=== PATIENT | female | born 1985 | race Caucasian/White ===

== ENCOUNTER → 2017-08-20 | Outpatient (CLI) | payer BC ==
[2017-08-20 10:40] LABS: HCT 42.3 % (34.0-46.0); HGB 13.8 gm/dL (11.4-16.0); MCHC 32.6 g/dL (31.0-37.0); Mean Platelet Volume 7.6; Platelet Count 264 k/uL (150-450); RDW 13.7 % (11.5-15.5); WBC 7.1 k/uL (3.8-10.6)
[2017-08-20 10:51] LABS: ALT 71 U/L (9-52); AST 35 U/L (14-36); Albumin 4.4 g/dL (3.5-5.0); Alkaline Phosphatase 51 U/L (38-126); Anion Gap 12 mmol/L; Blood Urea Nitrogen 13 mg/dL (7-17); Calcium 9.8 mg/dL (8.4-10.2); Carbon Dioxide 27 mmol/L (22-30); Chloride 104 mmol/L (98-107); Cholesterol 183 mg/dL (<200); Glucose 99 mg/dL (74-99); HDL Cholesterol 47 mg/dL (40-60); LDL Cholesterol,Calculated 117 mg/dL (0-99); Potassium 4.3 mmol/L (3.5-5.1); Sodium 143 mmol/L (137-145); Total Bilirubin 0.3 mg/dL (0.2-1.3); Total Protein 7.3 g/dL (6.3-8.2); Triglycerides 95 mg/dL (<150)
[2017-08-20 18:32] LABS: Hemoglobin A1C 5.5 % (4.0-6.0)
== END | disposition home or self-care (01) ==
LOC: LABWHC1 10:09
PROVIDERS: ATTEND Obstetrics & Gynecology Obstetrics
DX: Z00.00 Encounter for general adult medical examination without abnormal findings (principal); R10.9 Unspecified abdominal pain
CPT/HCPCS: 36415; 80053; 80061; 83036; 84439; 84443; 85027

== ENCOUNTER → 2017-12-27 | Outpatient (CLI) | payer BC | END | disposition home or self-care (01) | LOC: LABWHC1 14:21 | PROVIDERS: ATTEND Obstetrics & Gynecology Obstetrics | DX: N92.5 Other specified irregular menstruation (principal) | CPT/HCPCS: 36415; 84144; 84702 ==

== ENCOUNTER → 2017-12-29 | Outpatient (CLI) | payer BC | END | disposition home or self-care (01) | LOC: LABWHC1 13:35 | PROVIDERS: ATTEND Obstetrics & Gynecology Obstetrics | DX: N92.5 Other specified irregular menstruation (principal) | CPT/HCPCS: 36415; 84702 ==

== ENCOUNTER → 2018-05-04 | Outpatient (CLI) | payer BC, OTHER | END | disposition home or self-care (01) | LOC: LABWHC1 16:22 | PROVIDERS: ATTEND Family Medicine | DX: B83.9 Helminthiasis, unspecified (principal) | CPT/HCPCS: 87328; 87329 ==

== ENCOUNTER 2018-08-15 06:00 | Inpatient (IN) | payer BC, OTHER ==
[2018-08-15] MEDS ORDERED: METHYLERGONOVINE 0.2 MG/ML 1 ML AMP IM PRN (17:08)
[2018-08-15] MEDS ORDERED: CARBOPROST TROMETHAMINE 250 MCG/ML 1 ML AMP IM PRN (17:08)
[2018-08-15] MEDS ORDERED: LIDOCAINE 0.5% (PF) 5 MG/ML (50 ML SDV) SQ PRN (17:08)
[2018-08-15] MEDS ORDERED: TERBUTALINE 1 MG/ML VIAL SQ PRN (17:08)
[2018-08-15] MEDS ORDERED: OXYTOCIN 10 UNIT/ML 1 ML VIAL IM PRN (17:08)
[2018-08-15] MEDS ORDERED: DINOPROSTONE 10 MG INSERT.ER VAGINAL ONE (17:40)
[2018-08-15 18:00] LABS: Glucose,Whole Blood 74 mg/dL (75-99)
[2018-08-15] MEDS ORDERED: AMPICILLIN 2,000 MG in SODIUM CHLORIDE 0.9% 100 ML IVPB STA (18:07)
[2018-08-15] MEDS ORDERED: BUTORPHANOL 1 MG/ML 1 ML VIAL IV PRN (18:21)
--- NOTE | 2018-08-15 18:21 | P.HPOB ---
History of Present Illness H&P Date: 08/15/18 Chief Complaint: IUP at 37 and 5, uncontrolled gestational diabetes, LGA, AMA This is a very pleasant 33-year-old 4 para 0030 at 37-6/7 weeks that presented to labor and delivery for induction of labor secondary to uncontrolled gestational diabetes, LGA, AMA. Patient has been poorly controlled throughout her despite multiple discussions regarding diet and necessary blood sugars. Ultrasound revealing a 77 th %ile infant. testing has been normal. Patient has been receiving routine care with myself since the first trimester. Her care is significant for a diagnosis of gestational diabetes has been poorly controlled, hypothyroidism, advanced maternal age and asthma but been well controlled. blood work blood type of A+, rubella immune and hepatitis B surface engine negative, HIV negative, RPR nonreactive, group beta strep negative. Review of Systems Constitutional: Denies chills, Denies fatigue, Denies fever Ears, nose, mouth and throat: Denies headache Cardiovascular: Reports leg edema Respiratory: Denies cough, Denies dyspnea Gastrointestinal: Denies constipation, Denies diarrhea, Denies nausea, Denies vomiting Genitourinary: Reports Past Medical History Past Medical History: Asthma, Thyroid Disorder History of Any Multi-Drug Resistant Organisms: None Reported Additional Past Surgical History / Comment(s): Knee surgery to repair torn miniscus Past Anesthesia/Blood Transfusion Reactions: No Reported Reaction Past Psychological History: No Psychological Hx Reported Smoking Status: Former smoker Past Alcohol Use History: None Reported Past Drug Use History: None Reported Medications and Allergies Home Medications Medication Instructions Recorded Confirmed Type Levothyroxine Sodium [Synthroid] 75 mcg PO DAILY 07/03/18 07/03/18 History Pnv No.95/Ferrous Fum/Folic AC 1 each PO DAILY 07/03/18 07/03/18 History [ Multivitamin Tablet] Allergies Allergy/AdvReac Type Severity Reaction Status Date / Time lavender (Lavandula Allergy Rash/Hives Verified 08/15/18 17:42 angustifolia) shellfish derived [Shellfish] Allergy Diarrhea Verified 08/15/18 17:42 mustard AdvReac Anaphylaxis Verified 08/15/18 17:42 Exam Osteopathic Statement: *. No significant issues noted on an osteopathic structural exam other than those noted in the History and Physical/Consult. Targeted physical exam is performed on this date in general this is a well- nourished well-developed obese female in no acute distress. She notes nonlabored breathing heart is a regular rate and rhythm her abdomen is obese and gravid, on cervical exam /-3 soft anterior, Cervidil was placed without difficulty. heart tones are reassuring for gestational age and she is not yue. Assessment and Plan (1) Term Current Visit: Yes Status: Acute Code(s): Z34.80 - ENCOUNTER FOR SUPRVSN OF NORMAL , UNSP TRIMESTER SNOMED Code(s): 99821564 (2) GDM (gestational diabetes mellitus) Current Visit: Yes Status: Acute Code(s): O24.419 - GESTATIONAL DIABETES MELLITUS IN , UNSP CONTROL SNOMED Code(s): 13791964 (3) AMA (advanced maternal age) primigravida 35+ Current Visit: Yes Status: Acute Code(s): O09.519 - SUPERVISION OF ELDERLY PRIMIGRAVIDA, UNSPECIFIED TRIMESTER SNOMED Code(s): 20450935 (4) LGA (large for gestational age) fetus Current Visit: Yes Status: Acute Code(s): ZKV9649 - SNOMED Code(s): 864563597 (5) Poorly controlled diabetes mellitus Current Visit: Yes Status: Acute Code(s): E11.65 - TYPE 2 DIABETES MELLITUS WITH HYPERGLYCEMIA SNOMED Code(s): 039807144 Plan: Patient is admitted for Cervidil induction of labor, continuous monitoring along with monitoring of contractions with toco will be observed. Patient has a Hep-Lock in place. Will plan removal of Cervidil this morning with addition of Pitocin for augmentation of labor, amniotomy when appropriate. Patient's plan is reviewed and discussed with patient. Donna at bedside. Suspect this is a large for gestational age baby and discussed this patient will monitor progress through labor closely.
[2018-08-15 18:51] LABS: Basophils # (A) 0.1 k/uL (0-0.2); Basophils % (A) 1 %; Eosinophils # (A) 0.3 k/uL (0-0.7); Eosinophils % (A) 3 %; HCT 44.4 % (34.0-46.0); Lymphocytes # (A) 2.3 k/uL (1.0-4.8); Lymphocytes % (A) 22 %; MCH 26.8 pg (25.0-35.0); MCHC 31.7 g/dL (31.0-37.0); MCV 84.7 fL (80.0-100.0); Monocytes # (A) 0.5 k/uL (0-1.0); Monocytes % (A) 4 %; Neutrophils # (A) 6.9 k/uL (1.3-7.7); Neutrophils % (A) 68 %; Platelet Count 182 k/uL (150-450); RBC 5.24 m/uL (3.80-5.40); RDW 14.1 % (11.5-15.5); WBC 10.2 k/uL (3.8-10.6)
[2018-08-16] MEDS: LACTATED RINGERS 1,000 ML IV SCH ×5 (05:42→19:56)
[2018-08-16] MEDS: AMPICILLIN 1,000 MG in SODIUM CHLORIDE 0.9% 50 ML IVPB SCH ×3 (05:49→15:26)
[2018-08-16] MEDS ORDERED: OXYTOCIN 30 UNITS/500 ML NS 30 UNIT in SALINE 1 500ML.BAG IV SCH (06:00)
[2018-08-16 07:39] LABS: Glucose,Whole Blood 90 mg/dL (75-99)
[2018-08-16] MEDS ORDERED: ROPIVACAINE 100 MG, fentaNYL (PF) 200 MCG in SODIUM CHLORIDE 0.9% 76 ML EPIDURAL ONE (13:26)
[2018-08-16] MEDS ORDERED: CITRIC ACID-SODIUM CITRATE 15 ML CUP PO ONE (16:04)
[2018-08-16] MEDS ORDERED: ceFAZolin IN SWFI 2 GM/20 ML SYRINGE IVP ONE (16:04)
[2018-08-16] MEDS ORDERED: ONDANSETRON 4 MG/2 ML VIAL ONE (16:30)
[2018-08-16] MEDS ORDERED: MORPHINE SULFATE (PF) 0.3 MG/0.3 ML SYR ONE (16:30)
[2018-08-16] MEDS ORDERED: PHENYLEPHRINE-0.9% NACL SYG 1 MG/10 ML SYRINGE ONE (16:30)
[2018-08-16] MEDS ORDERED: OXYTOCIN 10 UNIT/ML 1 ML VIAL ONE (16:30)
[2018-08-16] MEDS ORDERED: NALBUPHINE 10 MG/ML (1 ML AMP) ONE (16:30)
[2018-08-16] MEDS ORDERED: diphenhydrAMINE 50 MG/ML 1 ML VIAL IVP PRN ×2 (17:20)
[2018-08-16] MEDS ORDERED: diphenhydrAMINE 25 MG CAP PO PRN (17:20)
[2018-08-16] MEDS ORDERED: ZOLPIDEM 5 MG TAB PO PRN (17:20)
[2018-08-16] MEDS ORDERED: ACETAMINOPHEN TAB 325 MG TAB PO PRN (17:20)
[2018-08-16] MEDS ORDERED: ACETAMINOPHEN IV (For NPO) 1,000 MG in EMPTY BAG 1 BAG IVPB ONE (17:20)
[2018-08-16] MEDS ORDERED: ONDANSETRON 4 MG/2 ML VIAL IVP PRN (17:20)
[2018-08-16] MEDS ORDERED: diphenhydrAMINE 50 MG CAP PO PRN (17:20)
[2018-08-16] MEDS ORDERED: HYDROcodone/APAP 5-325MG 1 EACH TAB PO PRN (17:20)
[2018-08-16] MEDS ORDERED: METOCLOPRAMIDE 5 MG/ML 2 ML VIAL IVP PRN (17:20)
[2018-08-16] MEDS ORDERED: NALOXONE 0.4 MG/ML 1 ML VIAL IV PRN (17:20)
[2018-08-16] MEDS ORDERED: IBUPROFEN IV 800 MG in SODIUM CHLORIDE 0.9% 250 ML IV ONE (17:23)
--- NOTE | 2018-08-16 17:27 | P.OP ---
Date of Procedure: 08/16/18 Preoperative Diagnosis: IUP @ 38 0/7 weeks, arrest of 1st stage of labor Postoperative Diagnosis: same Procedure(s) Performed: primary LTCS Anesthesia: epidural Surgeon: Dodie Hdz Iron Setter #1: Marielos Dominique Estimated Blood Loss (ml): 500 IV fluids (ml): 500 Urine output (ml): 50 Pathology: other (placenta) Condition: stable Disposition: observation Indications for Procedure: arrest of 1st stage of labor, cervical swelling Operative Findings: normal uterus tubes and ovaries, female delivered at 1646, weight of 6 lbs. 14 oz. Description of Procedure: The patient was prepped and draped in the usual fashion after spinal anesthesia was administered by anesthesia. A Pfannenstiel incision was made and extended of the abdominal cavity without difficulty. The brenda retractor was then placed into the abdominal cavity The bladder peritoneum was elevated and incised and reflected distally. A 2 cm incision was made in the transverse plane of the lower uterine segment to enter the uterus at which time clear fluid was noted. The incision was extended in both directions using the bandage scissors. The head was encountered within the field and delivered up and through the incision where the nose and mouth were thoroughly suctioned. Remainder of the infant was delivered onto the surgical field where the cord was doubly clamped, cut, and the infant was passed for resuscitative measures with weight and Apgars as noted above. A segment of cord was then doubly clamped, cut, and set aside should cord gases become necessary. The placenta was delivered manually, intact, and was grossly normal with a grossly normal three-vessel cord. the uterus was swept of any remaining placental and membranous fragments with a laparotomy sponge. The margins of the incision were grasped with Allis clamps and the incision closed in 2 layers. First layer was a running locking layer of 0 vicryl from margin to margin followed by a second layer of imbricating 0 c from margin to margin. Any small points of bleeding were then made hemostatic with the Bovie. Once hemostasis was achieved, the posterior cul-de-sac was suct ioned with a guard and the uterine and ovarian findings are as noted above. The uterus was replaced within the abdominal cavity and the gutters swept of any remaining blood fluid or clot. The incision was again reexamined and hemostasis was noted to be excellent. Any small point of bleeding were made hemostatic with the Bovie. Once hemostasis was achieved the parietal peritoneum was loosely reapproximated. The layer of muscles were examined and made hemostatic with the Bovie. Attention was then turned to the fascia which was closed with 2 running stitches of 0 Vicryl proceeding from the lateral margins to the midpoint. The subcutaneous tissues were irrigated, made hemostatic with the Bovie, and reapproximated with a running stitch of 30 vicryl. The skin was reapproximated with regular surgical radha. Estimated blood loss for the case was approximately 500 mL. All sponge instrument and needle counts are correct. There were no complications. The patient tolerated the procedure well and proceeded to the recovery room in stable condition. Both mother and infant are resting comfortably in recovery.
[2018-08-16] MEDS ORDERED: OXYTOCIN 20 UNITS/1000 ML NS 1,000 ML IV SCH (17:30)
[2018-08-17] MEDS: LACTATED RINGERS 1,000 ML IV SCH ×4 (01:25→16:48)
[2018-08-17] MEDS: SENNOSIDES-DOCUSATE SODIUM 1 EACH TAB PO SCH ×2 (01:25→08:45)
[2018-08-17] MEDS ORDERED: IBUPROFEN IV 800 MG in SODIUM CHLORIDE 0.9% 250 ML IV ONE (04:30)
--- NOTE | 2018-08-17 06:32 | P.PN ---
Progress Note - Text Progress Note Date: 08/17/18 Postoperative day 1 status post section under spinal anesthesia and in trathecal Duramorph for postoperative analgesia.The patient is doing well, there is mild generalized skin itching. There are no other anesthesia related complications. The patient denies any paresthesia or weakness in the lower extremities. Further management as per the patient primary team.
[2018-08-17 08:01] LABS: Basophils % (A) 0 %; Eosinophils # (A) 0.1 k/uL (0-0.7); Eosinophils % (A) 1 %; HCT 40.7 % (34.0-46.0); HGB 12.9 gm/dL (11.4-16.0); Lymphocytes # (A) 1.8 k/uL (1.0-4.8); Lymphocytes % (A) 13 %; MCH 27.4 pg (25.0-35.0); MCHC 31.8 g/dL (31.0-37.0); MCV 86.2 fL (80.0-100.0); Mean Platelet Volume 9.7; Monocytes # (A) 0.6 k/uL (0-1.0); Monocytes % (A) 4 %; Neutrophils # (A) 11.7 k/uL (1.3-7.7); Neutrophils % (A) 81 %; Platelet Count 160 k/uL (150-450); RBC 4.72 m/uL (3.80-5.40); RDW 14.4 % (11.5-15.5); WBC 14.4 k/uL (3.8-10.6)
--- NOTE | 2018-08-17 08:15 | P.PNOBGPC ---
Subjective - Subjective Principal diagnosis: POD 1 LTCS, arrest of labor, NRFHTs Interval history: Patient has done well overnight. She is ambulating and voiding without difficulty. She is tolerating clear liquids without nausea or vomiting. She is breast-feeding without difficulty. Her lochia is moderate. She denies any concerns and states her pain is well-controlled. Patient reports: Reports appetite normal, Reports voiding normally, Reports pain well controlled, Reports ambulating normally [place]: doing well, nursing well Objective - Vital Signs Latest vital signs: Vital Signs Temp Pulse Resp BP Pulse Ox 08/17/18 04:00 97.4 F L 78 15 138/74 08/17/18 00:00 98 F 75 15 137/74 08/16/18 19:16 97.1 F L 91 15 132/64 08/16/18 18:46 97.2 F L 96 18 141/80 97 08/16/18 18:16 98.6 F 84 18 132/62 08/16/18 18:01 90 18 144/77 08/16/18 17:46 97.9 F 18 120/60 95 08/16/18 17:31 65 18 120/60 08/16/18 17:16 97.3 F L 83 18 121/59 97 Intake and Output 08/16/18 08/17/18 08/17/18 22:59 06:59 14:59 Output Total 800 Balance -800 Output: Urine 800 Uretheral (Frey) 500 Other: Voiding Method Indwelling Catheter # Voids 1 - Exam Lungs: bilateral: normal Abdomen: Present: normal appearance, soft Incision: Present: normal, dry, intact Uterus: Present: firm - Labs Labs: Abnormal Lab Results - Last 24 Hours (Table) 08/17/18 Range/Units 06:39 WBC 14.4 H (3.8-10.6) k/uL Neutrophils # 11.7 H (1.3-7.7) k/uL Assessment and Plan (1) Term Current Visit: Yes Status: Acute Code(s): Z34.80 - ENCOUNTER FOR SUPRVSN OF NORMAL , UNSP TRIMESTER SNOMED Code(s): 64662561 (2) GDM (gestational diabetes mellitus) Current Visit: Yes Status: Acute Code(s): O24.419 - GESTATIONAL DIABETES MELLITUS IN , UNSP CONTROL SNOMED Code(s): 16899023 (3) AMA (advanced maternal age) primigravida 35+ Current Visit: Yes Status: Acute Code(s): O09.519 - SUPERVISION OF ELDERLY PRIMIGRAVIDA, UNSPECIFIED TRIMESTER SNOMED Code(s): 77366054 (4) Poorly controlled diabetes mellitus Current Visit: Yes Status: Acute Code(s): E11.65 - TYPE 2 DIABETES MELLITUS WITH HYPERGLYCEMIA SNOMED Code(s): 806564416 (5) Status post section Current Visit: Yes Status: Acute Code(s): Z98.891 - HISTORY OF UTERINE SCAR FROM PREVIOUS SURGERY SNOMED Code(s): 984089315 Plan: We'll continue routine postoperative care and anticipate discharge home tomorrow. Will advance diet to regular this morning.
[2018-08-17 08:55] VITALS: BMI 37.8
[2018-08-17] MEDS: PRENATAL VIT-IRON-FOLIC ACID 1 EACH CAP PO SCH (09:53)
[2018-08-17] MEDS: IBUPROFEN 600 MG TAB PO PRN ×2 (14:15→23:09)
[2018-08-17] MEDS: LEVOTHYROXINE 75 MCG TAB PO SCH (15:36)
[2018-08-17] MEDS: AMPICILLIN 1,000 MG in SODIUM CHLORIDE 0.9% 50 ML IVPB SCH (15:38)
[2018-08-18] MEDS: SENNOSIDES-DOCUSATE SODIUM 1 EACH TAB PO SCH ×2 (01:31→08:00)
[2018-08-18] MEDS: LACTATED RINGERS 1,000 ML IV SCH (01:33)
[2018-08-18] MEDS: LEVOTHYROXINE 75 MCG TAB PO SCH (06:49)
[2018-08-18] MEDS: IBUPROFEN 600 MG TAB PO PRN (08:16)
[2018-08-18] MEDS: PRENATAL VIT-IRON-FOLIC ACID 1 EACH CAP PO SCH (08:16)
--- NOTE | 2018-08-18 08:32 | P.DS ---
Providers Date of admission: 08/15/18 16:28 Expected date of discharge: 08/18/18 Attending physician: Dodie Hdz Primary care physician: Dodie Hdz - Discharge Diagnosis(es) (1) Term Current Visit: Yes Status: Acute (2) GDM (gestational diabetes mellitus) Current Visit: Yes Status: Acute (3) AMA (advanced maternal age) primigravida 35+ Current Visit: Yes Status: Acute (4) Poorly controlled diabetes mellitus Current Visit: Yes Status: Acute (5) Status post section Current Visit: Yes Status: Acute Hospital Course: This is a pleasant 33-year-old 1 para 0 at 38-0/7 weeks that presented to labor and delivery for induction of labor secondary to uncontrolled gestational diabetes, AMA. Patient was admitted Cervidil induction was begun, patient was comfortable through the night in the morning the Cervidil was removed and Pitocin augmentation of labor was begun. Amniotomy was performed clear fluid was obtained. Patient progressed through labor eventually becoming 4 cm and requesting epidural placement. Epidural was placed without difficulty by the anesthesia department. Patient progressed to 8 cm when cervical swelling and nonreassuring heart tones were noted. All primary low transverse section was recommended and patient agreed. was performed for further details on the please see the operative report. A viable female infant weight of 6 lbs. 14 oz. was born at 1646 with Apgars of 588 at one and 5 and 10 minutes respectively. Patient's postoperative course has been uneventful. On this postop day #2 she is ambulating and voiding without difficulty. She is tolerating regular diet without nausea or vomiting. She states her pain is controlled with oral Motrin. She is breast-feeding without difficulty. Her lochia is moderate. She does wish discharge home today. Patient Condition at Discharge: Good Plan - Discharge Summary Discharge Rx Participant: No New Discharge Prescriptions: No Action Levothyroxine Sodium [Synthroid] 75 mcg PO DAILY Pnv No.95/Ferrous Fum/Folic AC [ Multivitamin Tablet] 1 each PO DAILY Discharge Medication List Levothyroxine Sodium [Synthroid] 75 mcg PO DAILY 07/03/18 [History] Pnv No.95/Ferrous Fum/Folic AC [ Multivitamin Tablet] 1 each PO DAILY 07/03/18 [History] Follow up Appointment(s)/Referral(s): Dodie Hdz, [Primary Care Provider] - 2 Weeks Patient Instructions/Handouts: (DC), (GEN) Discharge Disposition: HOME SELF-CARE
[2018-08-18 09:16] VITALS: BP 136/85; PULSE 75; RESP 14; TEMP 98.2
== END 2018-08-18 15:23 | disposition home or self-care (01) | DRG 788 ==
LOC: 4FBP 16:28
PROVIDERS: ADMIT Obstetrics & Gynecology Obstetrics; ATTEND Obstetrics & Gynecology Obstetrics
PROC: 10D00Z1 Extraction of Products of Conception, Low, Open Approach (ICD-10-PCS; principal; 2018-08-16 06:00)
DX: O24.429 Gestational diabetes mellitus in childbirth, unspecified control (principal); O36.63X0 Maternal care for excessive fetal growth, third trimester, not applicable or unspecified; O76 Abnormality in fetal heart rate and rhythm complicating labor and delivery; O99.284 Endocrine, nutritional and metabolic diseases complicating childbirth; E03.9 Hypothyroidism, unspecified; O99.52 Diseases of the respiratory system complicating childbirth; J45.909 Unspecified asthma, uncomplicated; O99.62 Diseases of the digestive system complicating childbirth; K21.9 Gastro-esophageal reflux disease without esophagitis; O62.1 Secondary uterine inertia; Z37.0 Single live birth; Z3A.37 37 weeks gestation of pregnancy; Z79.890 Hormone replacement therapy; Z87.891 Personal history of nicotine dependence; Z91.013 Allergy to seafood; Z91.018 Allergy to other foods; Z91.048 Other nonmedicinal substance allergy status
CPT/HCPCS: 85025; 86850; 86900; 86901; 88307

== ENCOUNTER 2019-07-28 19:32 | Inpatient (IN) | payer BC, OTHER ==
[2019-07-28] MEDS ORDERED: SODIUM CHLORIDE 0.9% 1,000 ML IV STA (19:40)
[2019-07-28] MEDS ORDERED: ACETAMINOPHEN TAB 500 MG TAB PO STA (19:54)
[2019-07-28] MEDS ORDERED: AZITHROMYCIN 500 MG in SODIUM CHLORIDE 0.9% 250 ML IVPB STA (19:55)
[2019-07-28] MEDS ORDERED: cefTRIAXone IN SWFI 1,000 MG/10 ML SYRINGE IVP STA (19:55)
[2019-07-28] MEDS ORDERED: SODIUM CHLORIDE 0.9% 1,800 ML IV STA (19:56)
--- NOTE | 2019-07-28 20:01 | ED ---
General Adult HPI - General Chief complaint: Shortness of Breath Stated complaint: Cough/fever Time Seen by Provider: 07/28/19 19:39 Source: patient Mode of arrival: ambulatory Limitations: no limitations - History of Present Illness Initial comments: Dictation was produced using [employer] dictation software. please excuse any grammatical, word or spelling errors. Chief Complaint: 34-year-old female presents with worsening cough History of Present Illness: 34-year-old female she is been having cough and fever since . She was seen at urgent care today. She was diagnosed pneumonia and prescribed azithromycin, Tessalon Perles, steroids and albuterol inhaler. She was discharged from the urgent care to home in given instruction to come to the emergency department if she got worse. Patient since being at home has had persistent coughing. at bedside reports that she was having high spiking temperatures measuring 103 and 104. Patient's convinced her to come to the emergency department. Patient states she's been having uncontrollable coughing. She states she is unable to rest. Denies any recent travel. No overt sick contacts. The ROS documented in this emergency department record has been reviewed and confirmed by me. Those systems with pertinent positive or negative responses have been documented in the HPI. All other systems are other negative and/or noncontributory. PHYSICAL EXAM: General Impression: Alert and oriented x3, not in acute distress HEENT: Normocephalic atraumatic, extra-ocular movements intact, pupils equal and reactive to light bilaterally, mucous membranes moist. Cardiovascular: Heart regular rate and rhythm, S1&S2 audible, no murmurs, rubs or gallops Chest: Mild diffuse wheezing Abdomen: Bowel sounds present, abdomen soft, non-tender, non-distended, no organomegaly Musculoskeletal: Pulses present and equal in all extremities, no peripheral edema Motor: no focal deficits noted Neurological: CN II-XII grossly intact, no focal motor or sensory deficits noted Skin: Intact with no visualized rashes Psych: Normal affect and mood ED course: 34-year-old female presents with fever, intractable coughing. Vital signs upon arrival shows tachycardia. 102.1 temperature, heart rate of 127. Laboratory evaluation obtained. CBC, metabolic panel, urine and influence tests are all negative. Chest x-ray obtained showing right middle lobe infiltrate. Patient given breathing treatment. She is reevaluated at bedside states he feels unwell. She requested that she be admitted to the hospital. Considering patient's current clinical condition and believe it's reasonable to have her admitted to observation for IV antibiotics and medical monitoring. Patient is agreeable. Patient will be admitted to [facility] for further care. Patient ordered IV antibiotics treating be required pneumonia. - Related Data Home Medications Medication Instructions Recorded Confirmed Levothyroxine Sodium [Synthroid] 75 mcg PO DAILY 07/03/18 07/03/18 Pnv No.95/Ferrous Fum/Folic AC 1 each PO DAILY 07/03/18 07/03/18 [ Multivitamin Tablet] Allergies Allergy/AdvReac Type Severity Reaction Status Date / Time lavender (Lavandula Allergy Rash/Hives Verified 07/28/19 19:37 angustifolia) shellfish derived [Shellfish] Allergy Diarrhea Verified 07/28/19 19:37 mustard AdvReac Anaphylaxis Verified 07/28/19 19:37 Review of Systems ROS Statement: Those systems with pertinent positive or pertinent negative responses have been documented in the HPI. ROS Other: All systems not noted in ROS Statement are negative. Past Medical History Past Medical History: Asthma, Thyroid Disorder History of Any Multi-Drug Resistant Organisms: None Reported Additional Past Surgical History / Comment(s): Knee surgery to repair torn miniscus Past Anesthesia/Blood Transfusion Reactions: No Reported Reaction Past Psychological History: No Psychological Hx Reported Smoking Status: Former smoker Past Alcohol Use History: None Reported Past Drug Use History: None Reported General Exam Limitations: no limitations Course Vital Signs 07/28/19 07/28/19 19:35 20:32 Temperature 102.1 F H Pulse Rate 127 H Respiratory 16 18 Rate Blood Pressure 136/79 Medical Decision Making - Lab Data Result diagrams: 07/28/19 19:57 07/28/19 19:57 Lab Results 07/28/19 07/28/19 07/28/19 Range/Units 19:57 19:57 19:57 WBC 7.7 (3.8-10.6) k/uL RBC 4.86 (3.80-5.40) m/uL Hgb 13.4 (11.4-16.0) gm/dL Hct 40.5 (34.0-46.0) % MCV 83.3 (80.0-100.0) fL MCH 27.5 (25.0-35.0) pg MCHC 33.0 (31.0-37.0) g/dL RDW 13.1 (11.5-15.5) % Plt Count 180 (150-450) k/uL Neutrophils % 76 % Lymphocytes % 16 % Monocytes % 5 % Eosinophils % 1 % Basophils % 1 % Neutrophils # 5.8 (1.3-7.7) k/uL Lymphocytes # 1.2 (1.0-4.8) k/uL Monocytes # 0.4 (0-1.0) k/uL Eosinophils # 0.1 (0-0.7) k/uL Basophils # 0.1 (0-0.2) k/uL Sodium 136 L (137-145) mmol/L Potassium 3.5 (3.5-5.1) mmol/L Chloride 102 (98-107) mmol/L Carbon Dioxide 24 (22-30) mmol/L Anion Gap 10 mmol/L BUN 7 (7-17) mg/dL Creatinine 0.68 (0.52-1.04) mg/dL Est GFR (CKD-EPI)AfAm >90 (>60 ml/min/1.73 sqM) Est GFR (CKD-EPI)NonAf >90 (>60 ml/min/1.73 sqM) Glucose 104 H (74-99) mg/dL Plasma Lactic Acid Storm (0.7-2.0) mmol/L Calcium 8.9 (8.4-10.2) mg/dL Urine HCG, Qual Not Detected (Not Detectd) Influenza Type A RNA (Not Detectd) Influenza Type B (PCR) (Not Detectd) 07/28/19 07/28/19 Range/Units 19:57 19:57 WBC (3.8-10.6) k/uL RBC (3.80-5.40) m/uL Hgb (11.4-16.0) gm/dL Hct (34.0-46.0) % MCV (80.0-100.0) fL MCH (25.0-35.0) pg MCHC (31.0-37.0) g/dL RDW (11.5-15.5) % Plt Count (150-450) k/uL Neutrophils % % Lymphocytes % % Monocytes % % Eosinophils % % Basophils % % Neutrophils # (1.3-7.7) k/uL Lymphocytes # (1.0-4.8) k/uL Monocytes # (0-1.0) k/uL Eosinophils # (0-0.7) k/uL Basophils # (0-0.2) k/uL Sodium (137-145) mmol/L Potassium (3.5-5.1) mmol/L Chloride (98-107) mmol/L Carbon Dioxide (22-30) mmol/L Anion Gap mmol/L BUN (7-17) mg/dL Creatinine (0.52-1.04) mg/dL Est GFR (CKD-EPI)AfAm (>60 ml/min/1.73 sqM) Est GFR (CKD-EPI)NonAf (>60 ml/min/1.73 sqM) Glucose (74-99) mg/dL Plasma Lactic Acid Storm 1.9 (0.7-2.0) mmol/L Calcium (8.4-10.2) mg/dL Urine HCG, Qual (Not Detectd) Influenza Type A RNA Not Detected (Not Detectd) Influenza Type B (PCR) Not Detected (Not Detectd) Disposition Clinical Impression: Pneumonia Disposition: ADMITTED IP TO THIS HOSP Condition: Fair Referrals: Toby Tsai DO [Primary Care Provider] - 1-2 days Decision Time: 20:39
[2019-07-28 20:12] LABS: Basophils # (A) 0.1 k/uL (0-0.2); Basophils % (A) 1 %; Eosinophils # (A) 0.1 k/uL (0-0.7); Eosinophils % (A) 1 %; HCT 40.5 % (34.0-46.0); HGB 13.4 gm/dL (11.4-16.0); Lymphocytes # (A) 1.2 k/uL (1.0-4.8); Lymphocytes % (A) 16 %; MCH 27.5 pg (25.0-35.0); MCV 83.3 fL (80.0-100.0); Mean Platelet Volume 8.4; Monocytes # (A) 0.4 k/uL (0-1.0); Monocytes % (A) 5 %; Neutrophils # (A) 5.8 k/uL (1.3-7.7); Neutrophils % (A) 76 %; Platelet Count 180 k/uL (150-450); RBC 4.86 m/uL (3.80-5.40); RDW 13.1 % (11.5-15.5); WBC 7.7 k/uL (3.8-10.6)
--- NOTE | 2019-07-28 20:15 | XR ---
EXAMINATION TYPE: XR chest 2V DATE OF EXAM: 07/28/2019 COMPARISON: None INDICATION: Fever, cough TECHNIQUE: Frontal and lateral views of the chest are obtained. FINDINGS: The heart size is normal. The pulmonary vasculature is normal. There is a right middle lobe infiltrate. Correlate for pneumonia. Follow-up to clearing is recommende d. IMPRESSION: 1. Right middle lobe infiltrate suspicious for pneumonia. Follow-up to clearing is recommended.
[2019-07-28 20:20] LABS: African American GFR (CKD) >90 (>60 ml/min/1.73 sqM); Anion Gap 10 mmol/L; Blood Urea Nitrogen 7 mg/dL (7-17); Calcium 8.9 mg/dL (8.4-10.2); Carbon Dioxide 24 mmol/L (22-30); Chloride 102 mmol/L (98-107); Glucose 104 mg/dL (74-99); Non-African American GFR(CKD) >90 (>60 ml/min/1.73 sqM); Potassium 3.5 mmol/L (3.5-5.1); Sodium 136 mmol/L (137-145)
[2019-07-28] MEDS ORDERED: PNEUMONIA PROTOCOL UTILIZED 1 EACH MISC PO PRN (20:39)
[2019-07-28] MEDS ORDERED: CODEINE 30 MG TAB PO PRN (20:41)
[2019-07-28] MEDS: SODIUM CHLORIDE 0.9% 1,000 ML IV SCH (22:17)
[2019-07-29] MEDS: ACETAMINOPHEN TAB 325 MG TAB PO PRN (04:31)
[2019-07-29] MEDS: LEVOTHYROXINE 75 MCG TAB PO SCH (05:34)
[2019-07-29] MEDS: IBUPROFEN 600 MG TAB PO PRN ×2 (06:03→19:48)
[2019-07-29] MEDS: SODIUM CHLORIDE 0.9% 1,000 ML IV SCH ×2 (06:04→17:05)
[2019-07-29] MEDS: IPRATROPIUM-ALBUTEROL 3 ML NEB INHALATION PRN ×4 (07:35→20:56)
[2019-07-29] MEDS ORDERED: DIPHENOX-ATROP 2.5-0.025 MG 1 EACH TAB PO PRN (13:08)
--- NOTE | 2019-07-29 14:04 | P.HPIM ---
History of Present Illness 34-year-old pleasant female came in with complaints of cough fever patient's symptoms has been going on since Tuesday , was seen in urgent care clinic where she was diagnosed with pneumonia was given azithromycin. Patient continue d to have worsening cough spiking. Temperatures of [id number] and patient was not feeling well because of which 15 came to ER. Patient was started on azithromycin and Rocephin. Patient is still having cough with greenish sputum production patient last fever was last night blood cultures and sputum cultures were obtained. Patient is feeling much better today after a few doses of IV antibiotic Review of Systems REVIEW OF SYSTEMS: CONSTITUTIONAL: as mentioned in HPI HEENT: No recent visual problems or hearing problems. Denied any sore throat. CARDIOVASCULAR: No chest pain, orthopnea, PND, no palpitations, no syncope. PULMONARY:no hemoptysis. GASTROINTESTINAL: No diarrhea, no nausea, no vomiting, no abdominal pain. NEUROLOGICAL: No headaches, no weakness, no numbness. HEMATOLOGICAL: Denies any bleeding or petechiae. GENITOURINARY: Denies any burning micturition, frequency, or urgency. MUSCULOSKELETAL/RHEUMATOLOGICAL: Denies any joint pain, swelling, or any muscle pain. ENDOCRINE: Denies any polyuria or polydipsia. The rest of the 14-point review of systems is negative. Past Medical History Past Medical History: Asthma, Thyroid Disorder History of Any Multi-Drug Resistant Organisms: None Reported Past Surgical History: Section Additional Past Surgical History / Comment(s): Knee surgery to repair torn miniscus, from 08/16/18 Past Anesthesia/Blood Transfusion Reactions: Previous Problems w/ Anesthesia Additional Past Anesthesia/Blood Transfusion Reaction / Comment(s): vomiting Past Psychological History: No Psychological Hx Reported Smoking Status: Never smoker Past Alcohol Use History: None Reported Past Drug Use History: None Reported - Past Family History Mother Additional Family Medical History / Comment(s): osteoporosis Medications and Allergies Home Medications Medication Instructions Recorded Confirmed Type Levothyroxine Sodium [Synthroid] 75 mcg PO DAILY 07/03/18 07/29/19 History Allergies Allergy/AdvReac Type Severity Reaction Status Date / Time lavender (Lavandula Allergy Rash/Hives Verified 07/29/19 10:17 angustifolia) shellfish derived [Shellfish] Allergy Diarrhea Verified 07/29/19 10:17 mustard AdvReac Anaphylaxis Verified 07/29/19 10:17 Physical Exam Vitals: Vital Signs Temp Pulse Pulse Resp BP BP Pulse Ox 07/29/19 13:02 97.6 F 77 18 96/62 97 07/29/19 11:10 80 07/29/19 11:00 80 07/29/19 09:20 98.1 F 07/29/19 07:50 84 07/29/19 07:37 83 95 07/29/19 05:17 100.4 F H 96 18 100/64 95 07/28/19 21:35 99.9 F H 75 18 98/60 95 07/28/19 20:54 101.5 F H 110 H 18 107/60 96 07/28/19 20:32 18 07/28/19 19:35 102.1 F H 127 H 16 136/79 Intake and Output 07/28/19 07/29/19 07/29/19 22:59 06:59 14:59 Intake Total 800 Balance 800 Intake: Oral 800 Other: Voiding Method Toilet Toilet # Voids 1 1 1 # Bowel Movements 2 Weight 92.986 kg PHYSICAL EXAMINATION: GENERAL: The patient is alert and oriented x3, not in any acute distress. Well developed, well nourished. HEENT: Pupils are round and equally reacting to light. EOMI. No scleral icterus. No conjunctival pallor. Normocephalic, atraumatic. No pharyngeal erythema. No thyromegaly. CARDIOVASCULAR: S1 and S2 present. No murmurs, rubs, or gallops. PULMONARY: Chest is clear to auscultation, no wheezing or crackles. ABDOMEN: Soft, nontender, nondistended, normoactive bowel sounds. No palpable organomegaly. MUSCULOSKELETAL: No joint swelling or deformity. EXTREMITIES: No cyanosis, clubbing, or pedal edema. NEUROLOGICAL: Gross neurological examination did not reveal any focal deficits. SKIN: No rashes. Results CBC & Chem 7: 07/28/19 19:57 07/28/19 19:57 Labs: Abnormal Lab Results - Last 24 Hours (Table) 07/28/19 Range/Units 19:57 Sodium 136 L (137-145) mmol/L Glucose 104 H (74-99) mg/dL Microbiology - Last 24 Hours (Table) 07/29/19 09:16 Sputum Culture - Preliminary Sputum Thrombosis Risk Factor Assmnt - Choose All That Apply Any of the Below Risk Factors Present?: Yes Each Factor Represents 1 point: Obesity (BMI >25) Other Risk Factors: No Other congenital or acquired thrombophilia - If yes, enter type in comment: No Thrombosis Risk Factor Assessment Total Risk Factor Score: 1 Thrombosis Risk Factor Assessment Level: Low Risk Assessment and Plan Plan: -sepsis secondary to right middle lobe pneumonia patient will be continued on IV antibiotics possibly can be discharged tomorrowI'll continue with albuterol. Patient's Rocephin will be switched to 2 g daily -hypothyroidism -History of asthma patient is not in asthma exacerbation in spite of pneumonia GI prophylaxis with Pepcid
[2019-07-29] MEDS: AZITHROMYCIN 500 MG TAB PO SCH (19:47)
[2019-07-29] MEDS: FAMOTIDINE 20 MG TAB PO SCH (19:47)
[2019-07-30] MEDS: SODIUM CHLORIDE 0.9% 1,000 ML IV SCH ×3 (04:16→22:02)
[2019-07-30] MEDS: LEVOTHYROXINE 75 MCG TAB PO SCH (05:05)
[2019-07-30] MEDS: IPRATROPIUM-ALBUTEROL 3 ML NEB INHALATION PRN ×4 (07:32→19:06)
[2019-07-30] MEDS: IBUPROFEN 600 MG TAB PO PRN ×2 (08:08→16:50)
[2019-07-30] MEDS: FAMOTIDINE 20 MG TAB PO SCH ×2 (08:09→20:28)
[2019-07-30] MEDS ORDERED: ONDANSETRON 4 MG/2 ML VIAL IVP PRN (11:37)
--- NOTE | 2019-07-30 14:52 | P.PN ---
Subjective Progress Note Date: 07/30/19 This is a 34-year-old pleasant female came in with complaints of cough fever patient's symptoms has been going on since Tuesday , was seen in urgent care clinic where she was diagnosed with pneumonia was given azithromycin. Patient continued to have worsening cough spiking. Temperatures of [id number] and patient was not feeling well because of which 15 came to ER. Patient was started on azithromycin and Rocephin. Patient is still having cough with greenish sputum production patient last fever was last night blood cultures and sputum cultures were obtained. Patient is feeling much better today after a few doses of IV antibiotic. 3220 maintained on IV antibiotics. Afebrile. Sputum and blood cultures pending. Received codeine last night, complaining of nausea this morning. Productive cough, brownish yellowish sputum. Maintaining O2 sats in the 90s on room air. Denies chest pain, palpitations or increasing shortness of breath. Objective - Vital Signs Vital signs: Vital Signs Temp 98.0 F 07/30/19 14:32 Pulse 79 07/30/19 14:32 Resp 20 07/30/19 14:34 BP 111/74 07/30/19 14:32 Pulse Ox 97 07/30/19 14:32 Intake & Output 07/29/19 07/30/19 07/30/19 18:59 06:59 18:59 Intake Total 1366 081 2381 Balance 0174 396 8272 Intake: Intake, IV Titration 1150 Amount Sodium Chloride 0.9% 1, 1100 000 ml @ 100 mls/hr IV . Q10H KELLY Rx#:[id number] cefTRIAXone 2 gm In 50 Sodium Chloride 0.9% 50 ml @ 100 mls/hr IVPB Q24HR KELLY Rx#:[id number] Oral [id number] Other: Voiding Method Toilet # Voids 1 0 3 - Exam GENERAL: alert and oriented x3, no acute distress. HEENT: Pupils are round and equally reacting to light. EOMI. No scleral icterus. No conjunctival pallor. Normocephalic, atraumatic. No pharyngeal erythema. No thyromegaly. CARDIOVASCULAR: S1 and S2 present. No murmurs, rubs, or gallops. PULMONARY: Bilateral bases diminished, scattered bilateral rhonchi, greater on the right ABDOMEN: Soft, nontender, nondistended, normoactive bowel sounds. No palpable organomegaly. EXTREMITIES: No cyanosis, clubbing, or pedal edema. NEUROLOGICAL: Gross neurological examination did not reveal any focal deficits. SKIN: No rashes. - Labs CBC & Chem 7: 07/28/19 19:57 07/28/19 19:57 Labs: Microbiology - Last 24 Hours (Table) 07/29/19 09:16 Gram Stain - Preliminary Sputum Sputum Culture - Preliminary 07/28/19 20:02 Blood Culture - Preliminary Blood No Growth after 24 hours Assessment and Plan Assessment: -sepsis secondary to right middle lobe pneumonia patient will be continued on IV antibiotics possibly can be discharged tomorrowI'll continue with albuterol. Patient's Rocephin will be switched to 2 g daily -hypothyroidism -History of asthma patient is not in asthma exacerbation in spite of pneumonia GI prophylaxis with Pepcid Plan: Continue on current medication regime ,monitoring and symptomatic treatment. Continue on IV antibiotics, nebulized bronchodilators. Zofran added to med regime. Increase ambulation. Discharge planning in progress pending culture results. The impression and plan of care has been dictated as directed. : I performed a history and examination of this patient, discussed the same with the dictator. I agree with the dictator's note ,documented as a scribe. Any additional findings or plans will be noted.
[2019-07-30] MEDS: ACETAMINOPHEN TAB 325 MG TAB PO PRN (20:29)
[2019-07-30] MEDS: AZITHROMYCIN 500 MG TAB PO SCH (20:31)
[2019-07-31] MEDS: LEVOTHYROXINE 75 MCG TAB PO SCH (06:02)
[2019-07-31] MEDS: IPRATROPIUM-ALBUTEROL 3 ML NEB INHALATION PRN ×3 (07:23→15:40)
[2019-07-31] MEDS: SODIUM CHLORIDE 0.9% 1,000 ML IV SCH (08:50)
[2019-07-31] MEDS: FAMOTIDINE 20 MG TAB PO SCH ×2 (08:50→20:24)
[2019-07-31 09:34] LABS: Basophils % (A) 0 %; Eosinophils # (A) 0.2 k/uL (0-0.7); Eosinophils % (A) 4 %; HCT 38.5 % (34.0-46.0); HGB 12.5 gm/dL (11.4-16.0); Lymphocytes # (A) 1.3 k/uL (1.0-4.8); Lymphocytes % (A) 24 %; MCH 27.3 pg (25.0-35.0); MCHC 32.5 g/dL (31.0-37.0); Mean Platelet Volume 8.8; Monocytes # (A) 0.1 k/uL (0-1.0); Monocytes % (A) 2 %; Neutrophils # (A) 3.7 k/uL (1.3-7.7); Neutrophils % (A) 68 %; Platelet Count 230 k/uL (150-450); RBC 4.58 m/uL (3.80-5.40); RDW 13.1 % (11.5-15.5); WBC 5.4 k/uL (3.8-10.6)
[2019-07-31 09:50] LABS: African American GFR (CKD) >90 (>60 ml/min/1.73 sqM); Anion Gap 8 mmol/L; Blood Urea Nitrogen 4 mg/dL (7-17); Calcium 8.9 mg/dL (8.4-10.2); Carbon Dioxide 24 mmol/L (22-30); Chloride 107 mmol/L (98-107); Glucose 120 mg/dL (74-99); Non-African American GFR(CKD) >90 (>60 ml/min/1.73 sqM); Potassium 3.6 mmol/L (3.5-5.1); Sodium 139 mmol/L (137-145)
--- NOTE | 2019-07-31 10:39 | XR ---
EXAMINATION TYPE: XR chest 2V DATE OF EXAM: 07/31/2019 COMPARISON: 07/28/2019 INDICATION: Follow-up pneumonia TECHNIQUE: Frontal and lateral views of the chest are obtained. FINDINGS: The heart size is normal. The pulmonary vasculature is normal. Right lower lobe infiltrate remains present. IMPRESSION: 1. Right lower lobe infiltrate can be compatible with pneumonia. Continued follow-up is recommended.
--- NOTE | 2019-07-31 10:43 | P.DS ---
Providers Date of admission: 07/30/19 14:44 Expected date of discharge: 07/31/19 Attending physician: Toby Tsai Primary care physician: Toby Tsai [facility] Hospital Course: Final Diagnoses: -sepsis secondary to right middle lobe pneumonia -hypothyroidism -History of asthma patient is not in asthma exacerbation in spite of pneumonia Hospital course:This is a 34-year-old pleasant female came in with complaints of cough fever patient's symptoms has been going on since Tuesday , was seen in urgent care clinic where she was diagnosed with pneumonia was given azithromycin. Patient continued to have worsening cough spiking. Temperatures of [id number] and patient was not feeling well because of which 15 came to ER. Patient was started on azithromycin and Rocephin. Patient is still having cough with greenish sputum production patient last fever was last night blood cultures and sputum cultures were obtained. Patient is feeling much better today after a few doses of IV antibiotic. 3220 maintained on IV antibiotics. Afebrile. Sputum and blood cultures pending. Received codeine last night, complaining of nausea this morning. Productive cough, brownish yellowish sputum. Maintaining O2 sats in the 90s on room air. Denies chest pain, palpitations or increasing shortness of breath. Ambulating in [place], tolerating exertion well. Cough better, looser .Significant clinical improvement. Patient will be discharged home in a stable condition today pending improvement in follow-up chest x-ray. - Exam GENERAL: alert and oriented x3, no acute distress. CARDIOVASCULAR: S1 and S2 present. No murmurs, rubs, or gallops. PULMONARY: Bilateral bases diminished, occasional scattered rhonchi, no wheezing ABDOMEN: Soft, nontender, nondistended, normoactive bowel sounds. No palpable organomegaly. NEUROLOGICAL: Gross neurological examination did not reveal any focal deficits. The impression and plan of care has been dictated as directed. : I performed a history and examination of this patient, discussed the same with the dictator. I agree with the dictator's note ,documented as a scribe. Any additional findings or plans will be noted. Patient Condition at Discharge: Stable Plan - Discharge Summary Discharge Rx Participant: No New Discharge Prescriptions: New Doxycycline Monohydrate [Monodox] 100 mg PO BID 5 Days #10 cap Famotidine [Pepcid] 20 mg PO BID #0 tab Albuterol Inhaler [Ventolin Hfa Inhaler] 2 puff INHALATION QID #1 inhaler Continue Levothyroxine Sodium [Synthroid] 75 mcg PO DAILY Discharge Medication List Levothyroxine Sodium [Synthroid] 75 mcg PO DAILY 07/03/18 [History] Albuterol Inhaler [Ventolin Hfa Inhaler] 2 puff INHALATION QID #1 inhaler 07/31/19 [Rx] Doxycycline Monohydrate [Monodox] 100 mg PO BID 5 Days #10 cap 07/31/19 [Rx] Famotidine [Pepcid] 20 mg PO BID #0 tab 07/31/19 [Rx] Follow up Appointment(s)/Referral(s): Toby Tsai DO [Primary Care Provider] - 08/07/19 1:40 pm Ambulatory/Diagnostic Orders: Complete Blood Count w/diff [LAB.AMB] Time Frame: 3 Days, Location: None Selected Patient Instructions/Handouts: Pneumococcal 13-Valent Vaccine, Diphtheria Conjugate (By injection) Activity/Diet/Wound Care/Special Instructions: Pending F/U CXR results
[2019-07-31 14:58] VITALS: RESP 16
[2019-07-31] MEDS: AZITHROMYCIN 500 MG TAB PO SCH (20:24)
[2019-08-01] MEDS: SODIUM CHLORIDE 0.9% 1,000 ML IV SCH ×3 (01:33→13:32)
[2019-08-01] MEDS: IPRATROPIUM-ALBUTEROL 3 ML NEB INHALATION PRN ×6 (01:36→23:09)
[2019-08-01] MEDS: LEVOTHYROXINE 75 MCG TAB PO SCH (06:07)
[2019-08-01] MEDS: FAMOTIDINE 20 MG TAB PO SCH ×2 (09:11→20:50)
--- NOTE | 2019-08-01 18:04 | CT ---
EXAMINATION TYPE: CT angio chest DATE OF EXAM: 08/01/2019 COMPARISON: None HISTORY: Shortness of breath and cough. CT DLP: 408 mGycm Automated exposure control for dose reduction was used. CONTRAST: Performed with IV Contrast, patient injected with 52ml mL of Isovue 370. There are 3-D post processed images. There is patchy airspace infiltrate in the right middle lobe with some consolidation at the right car diac border. There is some mild infiltrate and atelectasis at the posterior lung bases. Heart size is normal. There is no pericardial effusion. There is normal contrast opacification of the pulmonary arteries. There are no filling defects. There is no mediastinal adenopathy. There are a fe w bronchial lymph nodes that measure up to 1 cm. Bony thorax appears intact. IMPRESSION: Right middle lobe pneumonia. Bilateral basilar infiltrate and atelectasis. No evidence of pulmonary embolism.
[2019-08-01] MEDS: AZITHROMYCIN 500 MG TAB PO SCH (20:50)
[2019-08-02] MEDS: SODIUM CHLORIDE 0.9% 1,000 ML IV SCH (00:07)
[2019-08-02] MEDS: IPRATROPIUM-ALBUTEROL 3 ML NEB INHALATION PRN ×2 (03:04→08:20)
[2019-08-02] MEDS: LEVOTHYROXINE 75 MCG TAB PO SCH (05:39)
[2019-08-02] MEDS: FAMOTIDINE 20 MG TAB PO SCH ×2 (08:15→20:51)
[2019-08-02] MEDS ORDERED: IPRATROPIUM-ALBUTEROL 3 ML NEB INHALATION PRN (08:39)
[2019-08-02] MEDS ORDERED: PANTOPRAZOLE 40 MG/10 ML VIAL IVP SCH (09:00)
[2019-08-02] MEDS: methylPREDNISolone SOD SUCCI 125 MG/2 ML VIAL IV SCH ×3 (09:43→17:42)
[2019-08-02] MEDS: IPRATROPIUM-ALBUTEROL 3 ML NEB INHALATION SCH ×4 (11:39→23:46)
[2019-08-02] MEDS: BUDESONIDE 0.5 MG/2 ML NEBU INHALATION SCH ×2 (11:40→18:57)
[2019-08-02 12:46] LABS: Glucose,Whole Blood 124 mg/dL (75-99)
[2019-08-02] MEDS: INSULIN ASPART (NovoLOG) 100 UNIT/ML VIAL SQ SCH ×3 (13:05→20:51)
--- NOTE | 2019-08-02 15:42 | P.CNPUL ---
History of Present Illness Consult date: 08/02/19 Reason for consult: pneumonia History of present illness: A very pleasant 34-year-old female patient, long-term asthmatic does not take any form of maintenance respiratory medications or inhalers and albuterol rescue inhaler. Dyspnea shortness of breath chest tightness and wheezing. She was having fever with T-max of 103 at a time of admission. She was seen at an urgent care and the patient was started doxycycline. Nevertheless she end up coming to the emergency department and she had an influenza screen came back negative. Chest x-ray showed a right middle lobe pneumonia. CAT scan of the chest confirmed the presence of a right middle lobe pneumonia and the patient was started on a combination of Rocephin and Zithromax. She is also on IV Solu- Medrol. She is feeling better. She is less bronchospastic and wheezy. The cough and congestion still present and has not completely subsided. No altered mentation. No hemoptysis. No pleurisy. No diarrhea. No nausea or vomiting. No other complaints otherwise. Her last hospitalization for pneumonia was back in 2009. 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 Review of Systems CONSTITUTIONAL: as mentioned in HPI, the patient was febrile at time of admission HEENT: No recent visual problems or hearing problems. Denied any sore throat. CARDIOVASCULAR: No chest pain, orthopnea, PND, no palpitations, no syncope. PULMONARY:no hemoptysis. There is increased shortness of breath chest tightness and wheezing and cough and congestion. GASTROINTESTINAL: No diarrhea, no nausea, no vomiting, no abdominal pain. NEUROLOGICAL: No headaches, no weakness, no numbness. HEMATOLOGICAL: Denies any bleeding or petechiae. GENITOURINARY: Denies any burning micturition, frequency, or urgency. MUSCULOSKELETAL/RHEUMATOLOGICAL: Denies any joint pain, swelling, or any muscle pain. ENDOCRINE: Denies any polyuria or polydipsia. Past Medical History Past Medical History: Asthma, Thyroid Disorder History of Any Multi-Drug Resistant Organisms: None Reported Past Surgical History: Section Additional Past Surgical History / Comment(s): Knee surgery to repair torn miniscus, from 08/16/18 Past Anesthesia/Blood Transfusion Reactions: Previous Problems w/ Anesthesia Additional Past Anesthesia/Blood Transfusion Reaction / Comment(s): vomiting Past Psychological History: No Psychological Hx Reported Smoking Status: Never smoker Past Alcohol Use History: None Reported Past Drug Use History: None Reported - Past Family History Mother Additional Family Medical History / Comment(s): osteoporosis Medications and Allergies Home Medications Medication Instructions Recorded Confirmed Type Levothyroxine Sodium [Synthroid] 75 mcg PO DAILY 07/03/18 07/29/19 History Albuterol Inhaler [Ventolin Hfa 2 puff INHALATION QID #1 inhaler 07/31/19 Rx Inhaler] Doxycycline Monohydrate [Monodox] 100 mg PO BID 5 Days #10 cap 07/31/19 Rx Famotidine [Pepcid] 20 mg PO BID #0 tab 07/31/19 Rx Budesonide-Formot 160-4.5 Mcg 2 puff INHALATION BID #1 inhaler 08/02/19 Rx [Symbicort 160-4.5 Mcg Inhaler] Allergies Allergy/AdvReac Type Severity Reaction Status Date / Time lavender (Lavandula Allergy Rash/Hives Verified 07/29/19 10:17 angustifolia) shellfish derived [Shellfish] Allergy Diarrhea Verified 07/29/19 10:17 mustard AdvReac Anaphylaxis Verified 07/29/19 10:17 Physical Exam Vitals: Vital Signs Temp Pulse Pulse Resp BP Pulse Ox 08/02/19 13:00 98.4 F 92 16 128/92 95 08/02/19 11:46 80 08/02/19 11:41 84 08/02/19 08:39 88 08/02/19 08:22 80 08/02/19 04:49 97.2 F L 89 16 115/60 92 L 08/02/19 03:14 84 08/02/19 03:04 84 08/01/19 23:16 84 08/01/19 23:09 82 08/01/19 21:15 97.8 F 82 16 122/83 93 L 08/01/19 19:11 80 08/01/19 19:02 78 Intake and Output 08/02/19 08/02/19 08/02/19 06:59 14:59 22:59 Other: Voiding Method Toilet # Voids 2 5 The patient appeared well nourished and normally developed. Vital signs as documented. Head exam is unremarkable. No scleral icterus or corneal arcus noted. Neck is without jugular venous distension, thyromegaly, or carotid bruits. Carotid upstrokes are brisk bilaterally. Lungs are clear to auscultation and percussion. There is scattered rhonchi and few scattered expiratory wheezes especially upon forceful exhalation maneuvers. Cardiac exam reveals the PMI to be normally sized and situated. Rhythm is regular. First and second heart sounds normal. No murmurs, rubs or gallops. Abdominal exam reveals normal bowel sounds, no masses, no organomegaly and no aortic enlargement. Extremities are no nedematous and both femoral and pedal pulses are normal.Examination of the skin revealed no evidence of significant rashes, suspicious appearing nevi or other concerning lesions. Neurologically awake and alert and there is no focal neurological deficits Results - Laboratory Findings CBC and BMP: 07/31/19 08:34 07/31/19 08:34 Abnormal lab findings: Abnormal Labs 07/28/19 07/31/19 08/02/19 19:57 08:34 12:44 Sodium 136 L BUN 4 L Glucose 104 H 120 H POC Glucose (mg/dL) 124 H - Diagnostic Findings Chest x-ray: image reviewed CT scan - chest: image reviewed Assessment and Plan Plan: 1 right middle lobe pneumonia, community-acquired 2 acute asthma exacerbation secondary to right middle lobe pneumonia 3 chronic bronchial asthma 4 obesity 5 hypothyroidism Plan The patient is improving. Continue same antibiotic coverage. Repeat chest x- ray in the morning. Cultures of been all negative. Was discussed this patient oral antibiotics if there is clinical improvement and radiographic improvement over the next 24-48 hours. For now the treatment is successful. Continue the bronchodilators. Continue the systemic steroids. We will follow
--- NOTE | 2019-08-02 16:56 | P.PN ---
Subjective Progress Note Date: 08/02/19 This is a 34-year-old pleasant female came in with complaints of cough fever patient's symptoms has been going on since Tuesday , was seen in urgent care clinic where she was diagnosed with pneumonia was given azithromycin. Patient continued to have worsening cough spiking. Temperatures of [id number] and patient was not feeling well because of which 15 came to ER. Patient was started on azithromycin and Rocephin. Patient is still having cough with greenish sputum production patient last fever was last night blood cultures and sputum cultures were obtained. Patient is feeling much better today after a few doses of IV antibiotic. 3220 maintained on IV antibiotics. Afebrile. Sputum and blood cultures pending. Received codeine last night, complaining of nausea this morning. Productive cough, brownish yellowish sputum. Maintaining O2 sats in the 90s on room air. Denies chest pain, palpitations or increasing shortness of breath. 08/01/2019 complains of increased shortness of breath this morning, accompanied by fine bibasilar crackles. Sputum culture normal. Afebrile. Reports exe rtional shortness of breath, post ambulation. Objective - Vital Signs Vital signs: Vital Signs Temp 98.4 F 08/02/19 13:00 Pulse 106 H 08/02/19 15:59 Resp 16 08/02/19 13:00 BP 128/92 08/02/19 13:00 Pulse Ox 95 08/02/19 15:47 Intake & Output 08/01/19 08/02/19 08/02/19 18:59 06:59 18:59 Other: Voiding Method Toilet Toilet # Voids 2 2 5 - Exam GENERAL: alert and oriented x3, no acute distress. HEENT: Pupils are round and equally reacting to light. EOMI. No scleral icterus. No conjunctival pallor. Normocephalic, atraumatic. No pharyngeal erythema. No thyromegaly. CARDIOVASCULAR: S1 and S2 present. No murmurs, rubs, or gallops. PULMONARY: Bilateral bases diminished, scattered bilateral rhonchi, greater on the right. Occasional scattered expiratory wheeze. ABDOMEN: Soft, nontender, nondistended, normoactive bowel sounds. No palpable organomegaly. EXTREMITIES: No cyanosis, clubbing, or pedal edema. NEUROLOGICAL: Gross neurological examination did not reveal any focal deficits. SKIN: No rashes. - Labs CBC & Chem 7: 07/31/19 08:34 07/31/19 08:34 Labs: Abnormal Lab Results - Last 24 Hours (Table) 08/02/19 Range/Units 12:44 POC Glucose (mg/dL) 124 H (75-99) mg/dL Microbiology - Last 24 Hours (Table) 07/28/19 20:02 Blood Culture - Preliminary Blood No Growth after 96 hours Assessment and Plan Assessment: -sepsis secondary to right middle lobe pneumonia, community-acquired --Acute hypoxic respiratory failure chronic intermittent asthma. -hypothyroidism -Obesity, BMI 33.1 Plan: Continue on current medication regime ,monitoring and symptomatic treatment. Sputum culture pending As chest x-ray did not show significant improvement, patient's O2 sat has decreased to low 90s on room air, CTA ordered. Continue on IV antibiotics. Slow improvement. Discharge planning in progress for tomorrow, pending CTA results. The impression and plan of care has been dictated as directed. : I performed a history and examination of this patient, discussed the same with the dictator. I agree with the dictator's note ,documented as a scribe. Any additional findings or plans will be noted.
--- NOTE | 2019-08-02 17:00 | P.PN ---
Subjective Progress Note Date: 08/01/19 This is a 34-year-old pleasant female came in with complaints of cough fever patient's symptoms has been going on since Tuesday , was seen in urgent care clinic where she was diagnosed with pneumonia was given azithromycin. Patient continued to have worsening cough spiking. Temperatures of [id number] and patient was not feeling well because of which 15 came to ER. Patient was started on azithromycin and Rocephin. Patient is still having cough with greenish sputum production patient last fever was last night blood cultures and sputum cultures were obtained. Patient is feeling much better today after a few doses of IV antibiotic. 3220 maintained on IV antibiotics. Afebrile. Sputum and blood cultures pending. Received codeine last night, complaining of nausea this morning. Productive cough, brownish yellowish sputum. Maintaining O2 sats in the 90s on room air. Denies chest pain, palpitations or increasing shortness of breath. 08/01/2019 complains of increased shortness of breath this morning, accompanied by fine bibasilar crackles. Sputum culture normal. Afebrile. Reports exe rtional shortness of breath, post ambulation. Objective - Vital Signs Vital signs: Vital Signs Temp 98.1 F 08/01/19 13:37 Pulse 76 08/01/19 15:15 Resp 16 08/01/19 13:37 BP 127/83 08/01/19 13:37 Pulse Ox 94 L 08/01/19 13:37 Intake & Output 07/31/19 08/01/19 08/01/19 18:59 06:59 18:59 Intake Total 540 Balance 540 Intake: Oral 540 Other: Voiding Method Toilet # Voids 2 4 2 # Bowel Movements 1 1 - Exam GENERAL: alert and oriented x3, no acute distress. HEENT: Pupils are round and equally reacting to light. EOMI. No scleral icterus. No conjunctival pallor. Normocephalic, atraumatic. No pharyngeal erythema. No thyromegaly. CARDIOVASCULAR: S1 and S2 present. No murmurs, rubs, or gallops. PULMONARY: Bilateral bases diminished, scattered bilateral rhonchi, greater on the right. Occasional scattered expiratory wheeze. ABDOMEN: Soft, nontender, nondistended, normoactive bowel sounds. No palpable organomegaly. EXTREMITIES: No cyanosis, clubbing, or pedal edema. NEUROLOGICAL: Gross neurological examination did not reveal any focal deficits. SKIN: No rashes. - Labs CBC & Chem 7: 07/31/19 08:34 07/31/19 08:34 Labs: Microbiology - Last 24 Hours (Table) 07/28/19 20:02 Blood Culture - Preliminary Blood No Growth after 72 hours Assessment and Plan Assessment: -sepsis secondary to right middle lobe pneumonia, community-acquired -chronic intermittent asthma -Acute hypoxic respiratory failure -hypothyroidism -Obesity, BMI 33.1 Plan: Continue on current medication regime ,monitoring and symptomatic treatment. Sputum culture pending As chest x-ray did not show significant improvement, patient's O2 sat has decreased to low 90s on room air, CTA ordered. Continue on IV antibiotics. Slow improvement. Discharge planning in progress for tomorrow, pending CTA results. The impression and plan of care has been dictated as directed. : I performed a history and examination of this patient, discussed the same with the dictator. I agree with the dictator's note ,documented as a scribe. Any additional findings or plans will be noted.
[2019-08-02 17:41] LABS: Glucose,Whole Blood 126 mg/dL (75-99)
[2019-08-02 20:27] LABS: Glucose,Whole Blood 135 mg/dL (75-99)
[2019-08-02] MEDS: AZITHROMYCIN 500 MG TAB PO SCH (20:50)
[2019-08-03] MEDS: methylPREDNISolone SOD SUCCI 125 MG/2 ML VIAL IV SCH ×3 (00:03→12:29)
[2019-08-03] MEDS: IPRATROPIUM-ALBUTEROL 3 ML NEB INHALATION SCH ×3 (05:01→10:54)
[2019-08-03] MEDS: LEVOTHYROXINE 75 MCG TAB PO SCH (06:03)
[2019-08-03 07:00] LABS: Glucose,Whole Blood 131 mg/dL (75-99)
--- NOTE | 2019-08-03 07:26 | XR ---
EXAMINATION TYPE: XR chest 1V portable DATE OF EXAM: 08/03/2019 COMPARISON: 07/30/2019 HISTORY: Right middle lobe pneumonia. Follow-up exam. TECHNIQUE: Single frontal view of the chest is obtained. FINDINGS: The previously seen right midlung opacity has resolved. Bibasilar opacities overlying the hemidiaphragms are mild with trace pleural effusions. Low lung volumes are seen. Cardiomediastinal si lhouette is stable. No acute osseous pathology. IMPRESSION: Resolved right midlung consolidation. Minimal bibasilar opacities likely represent atele ctasis with trace pleural effusions and low lung volumes.
[2019-08-03 07:35] VITALS: BP 125/83; TEMP 97.4
[2019-08-03] MEDS: BUDESONIDE 0.5 MG/2 ML NEBU INHALATION SCH (07:50)
[2019-08-03] MEDS: INSULIN ASPART (NovoLOG) 100 UNIT/ML VIAL SQ SCH ×2 (07:54→12:37)
[2019-08-03] MEDS: FAMOTIDINE 20 MG TAB PO SCH (08:01)
[2019-08-03 09:37] LABS: African American GFR (CKD) >90 (>60 ml/min/1.73 sqM); Anion Gap 17 mmol/L; Blood Urea Nitrogen 11 mg/dL (7-17); Calcium 10.1 mg/dL (8.4-10.2); Carbon Dioxide 22 mmol/L (22-30); Chloride 101 mmol/L (98-107); Glucose 231 mg/dL (74-99); Non-African American GFR(CKD) >90 (>60 ml/min/1.73 sqM); Potassium 3.8 mmol/L (3.5-5.1); Sodium 140 mmol/L (137-145)
--- NOTE | 2019-08-03 10:06 | P.DS ---
Providers Date of admission: 07/30/19 14:44 Expected date of discharge: 08/03/19 Attending physician: Toby Tsai Consults: 08/02/19 08:39 Consult Physician Routine Consulting Provider: Joesph Martinez Consult Reason/Comments: hypoxic resp failure/pneumonia/asthma exac Do you want consulting provider notified?: Yes Primary care physician: Toby Tsai Hospital Course: -sepsis secondary to right middle lobe pneumonia, community-acquired, improving -Acute hypoxic respiratory failure, resolved. Acute on chronic intermittent asthma exacerbation, improving -hypothyroidism -Obesity, BMI 33.1 Hospital course:This is a 34-year-old pleasant female came in with complaints of cough fever patient's symptoms has been going on since Tuesday , was seen in urgent care clinic where she was diagnosed with pneumonia was given azithromycin. Patient continued to have worsening cough spiking. Temperatures of [id number] and patient was not feeling well because of which 15 came to ER. Patient was started on azithromycin and Rocephin. Patient is still having cough with greenish sputum production patient last fever was last night blood cultures and sputum cultures were obtained. Patient is feeling much better today after a few doses of IV antibiotic. Slow to improve, with follow-up chest x-rays showing minimal improvement. Chest CTA reported right middle lobe pneumonia, no PE. Became bronchospastic, with increased wheezing cough and congestion. IV steroids, Pulmicort added to med regime with increased frequency of nebulized bronchodilators. Pulmonary consulted. Significant clinical and radiographic improvement. Patient is being discharged home in a stable condition with guarded prognosis. - Exam GENERAL: alert and oriented x3, no acute distress. CARDIOVASCULAR: S1 and S2 present. No murmurs, rubs, or gallops. PULMONARY: Bilateral bases diminished, occasional scattered rhonchi, no wheezing ABDOMEN: Soft, nontender, nondistended, normoactive bowel sounds. No palpable organomegaly. NEUROLOGICAL: Gross neurological examination did not reveal any focal deficits. The impression and plan of care has been dictated as directed. : I performed a history and examination of this patient, discussed the same with the dictator. I agree with the dictator's note ,documented as a scribe. Any additional findings or plans will be noted. Patient Condition at Discharge: Stable Plan - Discharge Summary Discharge Rx Participant: No New Discharge Prescriptions: New Doxycycline Monohydrate [Monodox] 100 mg PO BID 5 Days #10 cap Famotidine [Pepcid] 20 mg PO BID #0 tab Albuterol Inhaler [Ventolin Hfa Inhaler] 2 puff INHALATION QID #1 inhaler Budesonide-Formot 160-4.5 Mcg [Symbicort 160-4.5 Mcg Inhaler] 2 puff INHALATION BID #1 inhaler Ipratropium-Albuterol Nebulize [Duoneb 0.5 mg-3 mg/3 ml Soln] 3 ml INHALATION QID #120 neb Continue Levothyroxine Sodium [Synthroid] 75 mcg PO DAILY Discharge Medication List Levothyroxine Sodium [Synthroid] 75 mcg PO DAILY 07/03/18 [History] Albuterol Inhaler [Ventolin Hfa Inhaler] 2 puff INHALATION QID #1 inhaler 07/31/19 [Rx] Doxycycline Monohydrate [Monodox] 100 mg PO BID 5 Days #10 cap 07/31/19 [Rx] Famotidine [Pepcid] 20 mg PO BID #0 tab 07/31/19 [Rx] Budesonide-Formot 160-4.5 Mcg [Symbicort 160-4.5 Mcg Inhaler] 2 puff INHALATION BID #1 inhaler 08/02/19 [Rx] Ipratropium-Albuterol Nebulize [Duoneb 0.5 mg-3 mg/3 ml Soln] 3 ml INHALATION QID #120 neb 08/03/19 [Rx] Follow up Appointment(s)/Referral(s): Toby Tsai DO [Primary Care Provider] - 08/07/19 1:40 pm Rustam Lee MD [STAFF PHYSICIAN] - 2 Weeks Ambulatory/Diagnostic Orders: Complete Blood Count w/diff [LAB.AMB] Time Frame: 3 Days, Location: None Selected Patient Instructions/Handouts: Pneumococcal 13-Valent Vaccine, Diphtheria Conjugate (By injection) Activity/Diet/Wound Care/Special Instructions: Pt has a nebulizer machine
[2019-08-03 10:19] LABS: Basophils % (A) 0 %; Eosinophils % (A) 0 %; HGB 13.4 gm/dL (11.4-16.0); Lymphocytes # (A) 1.2 k/uL (1.0-4.8); Lymphocytes % (A) 7 %; MCH 27.2 pg (25.0-35.0); MCHC 31.8 g/dL (31.0-37.0); MCV 85.6 fL (80.0-100.0); Mean Platelet Volume 8.7; Monocytes # (A) 0.2 k/uL (0-1.0); Monocytes % (A) 1 %; Neutrophils # (A) 14.7 k/uL (1.3-7.7); Neutrophils % (A) 91 %; Platelet Count 326 k/uL (150-450); RBC 4.91 m/uL (3.80-5.40); RDW 13.7 % (11.5-15.5); WBC 16.3 k/uL (3.8-10.6)
[2019-08-03 10:56] VITALS: PULSE 96
[2019-08-03 11:58] LABS: Glucose,Whole Blood 146 mg/dL (75-99)
--- NOTE | 2019-08-03 12:10 | P.PN ---
Subjective Progress Note Date: 08/03/19 On today's evaluation of 08/03/2019 the patient is feeling better. She is less short of breath. No fever. No chills. No night sweats. No hemoptysis. No pleurisy. Chest x-ray shows improvement of the right middle lobe pneumonia and the patient is emanating on room air oxygen. Objective - Vital Signs Vital signs: Vital Signs Temp 97.4 F L 08/03/19 07:00 Pulse 96 08/03/19 11:04 Resp 16 08/03/19 07:41 BP 125/83 08/03/19 07:00 Pulse Ox 90 L 08/03/19 10:52 Intake & Output 08/02/19 08/03/19 08/03/19 18:59 06:59 18:59 Other: Voiding Method Toilet Toilet Toilet # Voids 5 2 - Exam The patient appeared well nourished and normally developed. Vital signs as documented. Head exam is unremarkable. No scleral icterus or corneal arcus noted. Neck is without jugular venous distension, thyromegaly, or carotid bruits. Carotid upstrokes are brisk bilaterally. Lungs are clear to auscultation and percussion. There is scattered rhonchi and few scattered expiratory wheezes especially upon forceful exhalation maneuvers. Cardiac exam reveals the PMI to be normally sized and situated. Rhythm is regular. First and second heart sounds normal. No murmurs, rubs or gallops. Abdominal exam reveals normal bowel sounds, no masses, no organomegaly and no aortic enlargement. Extremities are nonedematous and both femoral and pedal pulses are normal.Examination of the skin revealed no evidence of significant rashes, suspicious appearing nevi or other concerning lesions. Neurologically awake and alert and there is no focal neurological deficits - Labs CBC & Chem 7: 08/03/19 09:01 08/03/19 09:01 Labs: Abnormal Lab Results - Last 24 Hours (Table) 08/02/19 08/02/19 08/02/19 Range/Units 12:44 17:38 20:26 WBC (3.8-10.6) k/uL Neutrophils # (1.3-7.7) k/uL Glucose (74-99) mg/dL POC Glucose (mg/dL) 124 H 126 H 135 H (75-99) mg/dL 08/03/19 08/03/19 08/03/19 Range/Units 06:57 09:01 09:01 WBC 16.3 H (3.8-10.6) k/uL Neutrophils # 14.7 H (1.3-7.7) k/uL Glucose 231 H (74-99) mg/dL POC Glucose (mg/dL) 131 H (75-99) mg/dL 08/03/19 Range/Units 11:56 WBC (3.8-10.6) k/uL Neutrophils # (1.3-7.7) k/uL Glucose (74-99) mg/dL POC Glucose (mg/dL) 146 H (75-99) mg/dL Microbiology - Last 24 Hours (Table) 07/28/19 20:02 Blood Culture - Preliminary Blood No Growth after 120 hours Assessment and Plan Plan: 1 right middle lobe pneumonia, community-acquired 2 acute asthma exacerbation secondary to right middle lobe pneumonia 3 chronic bronchial asthma 4 obesity 5 hypothyroidism Plan The patient is clinically improving. Chest x-ray is improving. Discharged home on Levaquin 500 milligrams for the next 5 days. Medrol Dosepak. Symbicort as maintenance for asthma in addition to albuterol rescue inhaler. Follow-up in the office.
== END 2019-08-03 14:43 | disposition home or self-care (01) | DRG 871 ==
LOC: EC 19:32 → 6NMEDSUR 20:39 → OBSVTOIN 07-30 14:44
PROVIDERS: ADMIT Family Medicine; ATTEND Family Medicine
DX: A41.9 Sepsis, unspecified organism (principal); J18.9 Pneumonia, unspecified organism; J96.21 Acute and chronic respiratory failure with hypoxia; J45.21 Mild intermittent asthma with (acute) exacerbation; E03.9 Hypothyroidism, unspecified; E66.9 Obesity, unspecified; Z68.33 Body mass index [BMI] 33.0-33.9, adult; Z79.51 Long term (current) use of inhaled steroids; Z79.890 Hormone replacement therapy; Z79.899 Other long term (current) drug therapy; Z87.891 Personal history of nicotine dependence; Z98.890 Other specified postprocedural states; Z98.891 History of uterine scar from previous surgery; Z91.013 Allergy to seafood; Z91.018 Allergy to other foods; Z91.048 Other nonmedicinal substance allergy status; Z82.62 Family history of osteoporosis
CPT/HCPCS: 36415; 71045; 71046; 71275; 80048; 81025; 83605; 85025; 87040; 87070; 87205; 87324; 87502; 94640; 94760; 96365; 96375; 99285

== ENCOUNTER → 2019-08-06 | Outpatient (CLI) | payer BC, OTHER ==
[2019-08-06 17:44] LABS: Basophils # (A) 0.1 k/uL (0-0.2); Basophils % (A) 0 %; Eosinophils # (A) 0.2 k/uL (0-0.7); Eosinophils % (A) 1 %; HCT 46.6 % (34.0-46.0); HGB 14.9 gm/dL (11.4-16.0); Lymphocytes # (A) 3.3 k/uL (1.0-4.8); Lymphocytes % (A) 22 %; MCH 27.3 pg (25.0-35.0); MCV 85.4 fL (80.0-100.0); Mean Platelet Volume 8.2; Monocytes # (A) 0.6 k/uL (0-1.0); Monocytes % (A) 4 %; Neutrophils # (A) 10.8 k/uL (1.3-7.7); Neutrophils % (A) 71 %; Platelet Count 409 k/uL (150-450); RBC 5.45 m/uL (3.80-5.40); RDW 13.7 % (11.5-15.5); WBC 15.3 k/uL (3.8-10.6)
[2019-08-07 01:42] LABS: African American GFR (CKD) 109.9 (60.0-200.0); Anion Gap 12.1 mmol/L (4.00-12.00); BUN/Creat Ratio 18.75 Ratio (12.00-20.00); Calcium 9.9 mg/dL (8.7-10.3); Carbon Dioxide 26.9 mmol/L (21.6-31.8); Non-African American GFR(CKD) 94.8 (60.0-200.0); Potassium 4.4 mmol/L (3.5-5.5)
== END | disposition home or self-care (01) ==
LOC: LABWHC1 16:48
PROVIDERS: ATTEND Nurse Practitioner
DX: J18.9 Pneumonia, unspecified organism (principal)
CPT/HCPCS: 36415; 80048; 85025

== ENCOUNTER 2021-07-06 23:18 | Inpatient (IN) | payer OTHER ==
[2021-07-07] MEDS ORDERED: TERBUTALINE 1 MG/ML VIAL SQ PRN (00:11)
[2021-07-07] MEDS ORDERED: CARBOPROST TROMETHAMINE 250 MCG/ML 1 ML AMP IM PRN (00:11)
[2021-07-07] MEDS ORDERED: METHYLERGONOVINE 0.2 MG/ML 1 ML AMP IM PRN (00:11)
[2021-07-07] MEDS ORDERED: LIDOCAINE 1% (PF) 10 MG/ML (30 ML SDV) SQ PRN (00:11)
[2021-07-07] MEDS ORDERED: OXYTOCIN 10 UNIT/ML 1 ML VIAL IM PRN (00:11)
[2021-07-07] MEDS ORDERED: OXYTOCIN 30 UNITS/500 ML NS 30 UNIT in SALINE 1 500ML.BAG IV SCH ×2 (00:15→12:15)
[2021-07-07] MEDS ORDERED: LABETALOL 5 MG/ML VIAL MDV IVP PRN ×3 (00:16)
[2021-07-07] MEDS ORDERED: hydrALAZINE HCL 20 MG/ML 1 ML VIAL IVP PRN (00:16)
[2021-07-07 00:22] LABS: Creatinine 24 Hour,Urine 1777.5 mg/24hr (800.0-1800.0); Total Protein 24 Hour,Urine 325 mg/24hr (42.0-225.0); Total Volume 24 Hour,Urine 2500 mls (800-1800)
[2021-07-07 01:53] LABS: Basophils % (A) 0 %; Eosinophils # (A) 0.4 k/uL (0-0.7); Eosinophils % (A) 3 %; HCT 39.4 % (34.0-46.0); HGB 12.5 gm/dL (11.4-16.0); Lymphocytes # (A) 1.9 k/uL (1.0-4.8); Lymphocytes % (A) 17 %; MCHC 31.6 g/dL (31.0-37.0); MCV 88.6 fL (80.0-100.0); Monocytes # (A) 0.5 k/uL (0-1.0); Monocytes % (A) 5 %; Neutrophils # (A) 7.8 k/uL (1.3-7.7); Neutrophils % (A) 72 %; Platelet Count 113 k/uL (150-450); RBC 4.45 m/uL (3.80-5.40); WBC 10.8 k/uL (3.8-10.6)
[2021-07-07] MEDS: LACTATED RINGERS 1,000 ML IV SCH ×5 (02:15→22:47)
[2021-07-07 05:17] LABS: Large Platelets Present
[2021-07-07] MEDS ORDERED: LABETALOL 200 MG TAB PO STA (07:00)
[2021-07-07] MEDS ORDERED: CITRIC ACID-SODIUM CITRATE 15 ML CUP PO ONE (09:01)
[2021-07-07] MEDS ORDERED: LACTATED RINGERS 1,000 ML IV SCH (09:15)
[2021-07-07] MEDS ORDERED: OXYTOCIN 30 UNITS/500 ML NS BAG IV ONE (11:00)
[2021-07-07] MEDS ORDERED: fentaNYL (PF) 50 MCG/ML 2 ML AMP ONE (11:00)
[2021-07-07] MEDS ORDERED: MORPHINE SULFATE (PF) 0.3 MG/0.3 ML SYR ONE (11:00)
[2021-07-07] MEDS ORDERED: PHENYLEPHRINE-0.9% NACL SYG 1,000 MCG/10 ML SYRINGE ONE (11:00)
[2021-07-07] MEDS ORDERED: ONDANSETRON 4 MG/2 ML VIAL ONE (11:00)
[2021-07-07] MEDS ORDERED: METOCLOPRAMIDE 5 MG/ML 2 ML VIAL ONE (11:00)
[2021-07-07] MEDS ORDERED: diphenhydrAMINE 50 MG/ML 1 ML VIAL IVP PRN ×3 (11:44→12:02)
[2021-07-07] MEDS ORDERED: ONDANSETRON 4 MG/2 ML VIAL IVP PRN ×2 (11:44→12:02)
[2021-07-07] MEDS ORDERED: MORPHINE SULFATE 2 MG/ML SYRINGE IVP PRN (11:44)
[2021-07-07] MEDS ORDERED: NALOXONE 0.4 MG/ML 1 ML VIAL IV PRN ×2 (11:44→12:02)
[2021-07-07] MEDS ORDERED: KETOROLAC 30 MG/ML 1 ML VIAL IVP PRN (11:44)
[2021-07-07] MEDS ORDERED: NALBUPHINE 10 MG/ML (1 ML AMP) IV PRN (11:44)
[2021-07-07] MEDS ORDERED: ZOLPIDEM 5 MG TAB PO PRN (12:02)
[2021-07-07] MEDS ORDERED: diphenhydrAMINE 50 MG CAP PO PRN (12:02)
[2021-07-07] MEDS ORDERED: diphenhydrAMINE 25 MG CAP PO PRN (12:02)
[2021-07-07] MEDS ORDERED: METOCLOPRAMIDE 5 MG/ML 2 ML VIAL IVP PRN (12:02)
[2021-07-07] MEDS ORDERED: IBUPROFEN IV 800 MG in SODIUM CHLORIDE 0.9% 250 ML IV PRN (12:15)
--- NOTE | 2021-07-07 12:34 | P.OP ---
Date of Procedure: 07/07/21 Preoperative Diagnosis: IUP at 37-3/7 weeks, history of 1, desires repeat, gestational hypertension with proteinuria Postoperative Diagnosis: Same Procedure(s) Performed: Repeat section with tubal ligation, Filshie clips Anesthesia: spinal Surgeon: Dodie Hdz Cord Maker #1: Makayla Patel Estimated Blood Loss (ml): 382 IV fluids (ml): 1,000 Urine output (ml): 200 Pathology: other (Placenta) Disposition: observation Indications for Procedure: History of 1 desires repeat. Elevated blood pressures, from is a pediatric, proteinuria Operative Findings: Significant subcutaneous edema is appreciated upon entering the abdomen, viable male delivered at 1124, weight of 7 lbs. 14 oz., Apgars of 9 and 9 at one and 5 minutes respectively. Normal uterus tubes and ovaries are appreciated. Description of Procedure: Patient was taken back to the operative suite where spinal anesthesia was found be adequate by the anesthesia department. She is then prepped and draped in normal sterile fashion in dorsal supine position. A Pfannenstiel skin incision is made the scalpel and carried through the underlying layer of fascia. The fascia is incised in the midline and extended laterally. The superior aspect of the fascial incision was then grasped lindsey clamps, elevated and underlying rectus muscles dissected off sharply. Attention then turned the inferior aspect of the fascial incision which was grasped lindsey clamps, elevated and the underlying rectus muscle was dissected off sharply once again. The rectus muscles were in the midline the peritoneum was identified and entered. This incision was then extended superiorly and inferiorly with good visualization the bladder. The bladder blade was then inserted into the pelvis. The bladder flap was then created using sharp and blunt dissection. The bladder blade was then reinserted into the pelvis. Hysterotomy incision is made with the scalpel amniotomy is performed and clear fluid was obtained. The infant is encountered in a vertex presentation delivered in usual fashion. The umbilical cord was doubly clamped and cut and the was handed off to awaiting RN. The placenta was then delivered manually and the uterus was cleared of all clots and debris. The uterus was then delivered from the abdomen, the uterine incision is closed with 0 Vicryl in a running locked fashion, a second imbricating suture was performed. The pelvis was then irrigated and cleared of all clots and debris. The Filshie clip applicator was opened and the left fallopian tube is crushed with the clip according to pattern wheel maker's instructions, this is then repeated in the opposite side. The hysterotomy incision is inspected and found to be hemostatic. Uterus then returned to the abdomen. A generalized amount of oozing is appreciated therefore Surgicel powder is placed along the hysterotomy incision. The gutters had been cleared of all clots and debris prior to this. The peritoneum was loosely reapproximated. The rectus muscles were inspected and found to be hemostatic. The fascia closed with 0 Vicryl in a running fashion from one lateral edge the midline and the other lateral edge the midline. The subcu cutaneous tissue was irrigated found be hemostatic and closed 3-0 Vicryl in a running fashion. The skin was then closed 4-0 Vicryl in a septic fashion. Mcnamara ture strips and sterile dressings were applied. Patient and tolerated procedure well. All counts are correct 2. Patient was taken to the labor and delivery suite in stable condition.
[2021-07-07] MEDS: ACETAMINOPHEN TAB 500 MG TAB PO SCH ×2 (15:26→21:21)
[2021-07-07] MEDS: LABETALOL 200 MG TAB PO SCH ×2 (16:12→21:21)
[2021-07-07 17:46] LABS: ALT 17 U/L (4-34); AST 32 U/L (14-36); African American GFR (CKD) >90 (>60 ml/min/1.73 sqM); Blood Urea Nitrogen 8 mg/dL (7-17); LDH 509 U/L (313-618); Non-African American GFR(CKD) >90 (>60 ml/min/1.73 sqM); Uric Acid 5.7 mg/dL (3.7-7.4)
[2021-07-07] MEDS ORDERED: ACETAMINOPHEN IV (For NPO) 1,000 MG in EMPTY BAG 1 BAG IVPB PRN (18:00)
[2021-07-07 18:19] LABS: Basophils % (A) 0 %; Eosinophils # (A) 0.3 k/uL (0-0.7); Eosinophils % (A) 3 %; HCT 40.2 % (34.0-46.0); HGB 12.9 gm/dL (11.4-16.0); Lymphocytes # (A) 1.7 k/uL (1.0-4.8); Lymphocytes % (A) 15 %; MCH 27.9 pg (25.0-35.0); MCHC 32.1 g/dL (31.0-37.0); MCV 86.9 fL (80.0-100.0); Mean Platelet Volume 11.9; Monocytes # (A) 0.4 k/uL (0-1.0); Monocytes % (A) 4 %; Neutrophils # (A) 8.4 k/uL (1.3-7.7); Neutrophils % (A) 76 %; Platelet Count 106 k/uL (150-450); RBC 4.62 m/uL (3.80-5.40); RDW 14.8 % (11.5-15.5); WBC 11.1 k/uL (3.8-10.6)
[2021-07-07 19:11] LABS: Large Platelets Present; RBC Morphology Normal
[2021-07-07] MEDS: IBUPROFEN 600 MG TAB PO SCH (21:20)
[2021-07-07] MEDS: SENNOSIDES-DOCUSATE SODIUM 1 EACH TAB PO SCH (21:21)
[2021-07-08 06:32] LABS: Basophils % (A) 0 %; Eosinophils # (A) 0.1 k/uL (0-0.7); Eosinophils % (A) 1 %; HCT 38.2 % (34.0-46.0); HGB 12.4 gm/dL (11.4-16.0); Lymphocytes # (A) 1.5 k/uL (1.0-4.8); Lymphocytes % (A) 13 %; MCH 28.3 pg (25.0-35.0); MCHC 32.6 g/dL (31.0-37.0); MCV 86.9 fL (80.0-100.0); Mean Platelet Volume 12.1; Monocytes # (A) 0.4 k/uL (0-1.0); Monocytes % (A) 4 %; Neutrophils # (A) 9.4 k/uL (1.3-7.7); Neutrophils % (A) 81 %; Platelet Count 100 k/uL (150-450); RBC 4.39 m/uL (3.80-5.40); RDW 14.4 % (11.5-15.5); WBC 11.6 k/uL (3.8-10.6)
[2021-07-08 06:43] LABS: Uric Acid 5.5 mg/dL (3.7-7.4)
[2021-07-08 06:44] LABS: Partial Thromboplastin Time 27.1 sec (22.0-30.0); Prothrombin Time 10.7 sec (9.0-12.0)
[2021-07-08 07:09] LABS: Large Platelets Present
[2021-07-08] MEDS: LEVOTHYROXINE 75 MCG TAB PO SCH (07:31)
[2021-07-08] MEDS: ACETAMINOPHEN TAB 500 MG TAB PO SCH ×4 (07:45→20:22)
--- NOTE | 2021-07-08 07:50 | P.PN ---
Progress Note - Text Progress Note Date: 07/08/21 (843) Anesthesia Postop day 1 Subjective: Status Post section with Duramorph. Patient seen and examined. Complaining of motion sickness after procedure. Vomited 3 until last night now resolved. VAS 2 out of 10. Mild pruritus. Afebrile. Gross lower extremity strength intact. Without apparent anesthetic complications. Objective: Vital signs reviewed Heart: Regular Rate Lungs: Good chest excursion Abdomen: Appears nondistended Assessment: Status post with Duramorph postop day 1 Plan: Continue current care with your medical management. Anticipated and the Duramorph around noon tonight, you may see increased pain needs around this phoebe e.
[2021-07-08] MEDS: IBUPROFEN 600 MG TAB PO SCH ×4 (08:54→23:41)
[2021-07-08] MEDS: LACTATED RINGERS 1,000 ML IV SCH (08:54)
[2021-07-08] MEDS: SENNOSIDES-DOCUSATE SODIUM 1 EACH TAB PO SCH ×2 (08:55→20:22)
[2021-07-08] MEDS: LABETALOL 200 MG TAB PO SCH ×2 (09:24→20:22)
[2021-07-08] MEDS: SIMETHICONE 80 MG CHEWABLE PO PRN ×2 (13:15→20:22)
--- NOTE | 2021-07-08 13:16 | P.PNOBGPC ---
Subjective - Subjective Principal diagnosis: Postop day 1, repeat section with tubal ligation Interval history: Patient is doing well postoperatively. She is ambulating and voiding without difficulty. Tolerating a regular diet without nausea or vomiting. Her pain is well-controlled with oral ibuprofen/Tylenol. She is breast-feeding with some difficulty. Her lochia is minimal. Patient reports: Reports appetite normal, Reports voiding normally, Reports pain well controlled, Reports ambulating normally [place]: doing well Objective - Vital Signs Latest vital signs: Vital Signs Temp Pulse Resp BP Pulse Ox 07/08/21 11:19 98 18 07/08/21 11:16 98.7 F 82 18 120/76 07/08/21 08:00 98.5 F 80 16 143/88 97 07/08/21 04:00 98.3 F 80 16 148/84 07/08/21 00:00 98.0 F 80 16 164/81 07/07/21 21:19 16 95 07/07/21 20:00 97.5 F L 80 16 134/78 95 07/07/21 18:23 18 148/91 07/07/21 18:00 18 96 07/07/21 17:00 82 18 143/84 07/07/21 16:45 80 149/90 96 07/07/21 16:30 79 148/84 07/07/21 16:00 98.1 F 74 18 147/88 96 07/07/21 15:48 97.5 F L 74 18 157/90 95 07/07/21 14:45 18 97 07/07/21 14:06 97.7 F 73 18 150/82 97 07/07/21 13:33 97.1 F L 73 18 141/79 97 Intake and Output 07/07/21 07/08/21 07/08/21 22:59 06:59 14:59 Output Total 150 650 375 Balance -150 -650 -375 Output: Urine 100 650 375 Uretheral (Frey) 100 650 Emesis 50 Other: # Voids 0 0 - Exam Extremities: Present: normal, edema Abdomen: Present: normal appearance, soft Incision: Present: normal, dry, intact Uterus: Present: normal, firm - Labs Labs: Abnormal Lab Results - Last 24 Hours (Table) 07/07/21 07/08/21 Range/Units 17:12 06:04 WBC 11.1 H 11.6 H (3.8-10.6) k/uL Plt Count 106 L 100 L (150-450) k/uL Neutrophils # 8.4 H 9.4 H (1.3-7.7) k/uL Assessment and Plan (1) 37 or more weeks gestation of Current Visit: Yes Status: Acute Code(s): LXK2156 - SNOMED Code(s): 66237182 (2) Gestational HTN Current Visit: Yes Status: Acute Code(s): O13.9 - GESTATIONAL HTN W/O SIGN IFICANT PROTEINURIA, UNSP TRIMESTER SNOMED Code(s): 46317310 (3) AMA (advanced maternal age) primigravida 35+ Current Visit: No Status: Acute Code(s): O09.519 - SUPERVISION OF ELDERLY PRIMIGRAVIDA, UNSPECIFIED TRIMESTER SNOMED Code(s): 60463659 (4) Status post section Current Visit: No Status: Acute Code(s): Z98.891 - HISTORY OF UTERINE SCAR FROM PREVIOUS SURGERY SNOMED Code(s): 457850161 Plan: 36-year-old status post repeat section with tubal ligation. Patient is doing well postoperatively. Encouraged increased ambulation. Anticipate discharge home tomorrow.
[2021-07-09] MEDS: ACETAMINOPHEN TAB 500 MG TAB PO SCH (02:55)
[2021-07-09] MEDS: IBUPROFEN 600 MG TAB PO SCH ×2 (06:11→16:14)
[2021-07-09] MEDS: LEVOTHYROXINE 75 MCG TAB PO SCH (06:12)
--- NOTE | 2021-07-09 08:05 | P.DS ---
Providers Date of admission: 07/07/21 00:03 Expected date of discharge: 07/09/21 Attending physician: Dodie Hdz Primary care physician: Stated None Hospital Course: This is a 36-year-old female 2 para 1001 EDC 07/25/2021 at 37-3/7 weeks' gestation who presented from home with elevated blood pressures, despite being placed on oral labetalol 24 hours prior. Platelets were decreasing, liver enzymes slowly elevating, decision was made to proceed with repeat low transverse section. Patient also requested tubal ligation. Her is remarkable for positive group B strep cultures, rubella status immune, blood type A+. Please see dictated history and physical for details. Patient underwent a repeat low transverse section giving to a liveborn male with scores of 9 and 9 at one and 5 minutes respectively. Vacuum extractor was needed to assist in delivering fetus's head. weighed 7 lbs. 14 oz. or 3580 g. Estimated blood loss 382 mL's. Tubal ligation was performed utilizing Filshie clips. Please see dictated operative note for details. Postoperatively the patient has been stable now on labetalol 200 mg twice daily. Incision is clean and dry, intact, Steri-Strips applied. Minimal lochia rubra. Breast-feeding is going well. [place] infant has been circumcised. Patient is judged to be in good condition for discharge home. Her blood pressures have been ranging 110s to 140s over 70s to 80s. She is given a prescription for labetalol 200 mg to continue twice daily. Prescription for breast pump is also provided. Survey Engineer will follow up with as directed. Patient will see Dr. Mehta in 2 weeks, we'll continue taking her blood pressures daily and to document then at home. I have given her blood pressure parameters from which to call if needed at home. She denies visual changes, right upper quadrant pain, or headache. She will notify us if that is to change. Postoperative instructions are reviewed in detail. Assessment: Doing well second postoperative day Patient Condition at Discharge: Good Plan - Discharge Summary Discharge Rx Participant: No New Discharge Prescriptions: No Action Levothyroxine Sodium [Synthroid] 75 mcg PO DAILY Famotidine [Pepcid] 20 mg PO BID #0 tab Ipratropium-Albuterol Nebulize [Duoneb 0.5 mg-3 mg/3 ml Soln] 3 ml INHALATION QID #120 neb Fluticasone Nasal Dinosaur [Flonase Nasal Dinosaur] Aspirin [Vazalore] 81 mg PO Labetalol [Trandate] 100 mg PO BID Loratadine [Claritin] 5 mg PO DAILY Acetaminophen Tab [Tylenol] 650 mg PO Q4H Pnv 11/Iron Fum/Folic Acid/Om3 [Virt-Alton Dha Softgel] 1 each PO Discharge Medication List Levothyroxine Sodium [Synthroid] 75 mcg PO DAILY 07/03/18 [History] Famotidine [Pepcid] 20 mg PO BID #0 tab 07/31/19 [Rx] Ipratropium-Albuterol Nebulize [Duoneb 0.5 mg-3 mg/3 ml Soln] 3 ml INHALATION QID #120 neb 08/03/19 [Rx] Acetaminophen Tab [Tylenol] 650 mg PO Q4H 07/05/21 [History] Aspirin [Vazalore] 81 mg PO 07/05/21 [History] Fluticasone Nasal Dinosaur [Flonase Nasal Dinosaur] 07/05/21 [History] Loratadine [Claritin] 5 mg PO DAILY 07/05/21 [History] Pnv 11/Iron Fum/Folic Acid/Om3 [Virt-Alton Dha Softgel] 1 each PO 07/05/21 [History] Labetalol [Trandate] 100 mg PO BID 07/06/21 [History] Follow up Appointment(s)/Referral(s): Dodie Hdz DO [Doctor of Osteopathic Medicine] - 2 Weeks Discharge Disposition: HOME SELF-CARE
[2021-07-09] MEDS: SENNOSIDES-DOCUSATE SODIUM 1 EACH TAB PO SCH (09:07)
[2021-07-09] MEDS: SIMETHICONE 80 MG CHEWABLE PO PRN (09:07)
[2021-07-09] MEDS: LABETALOL 200 MG TAB PO SCH (09:07)
[2021-07-09 15:57] VITALS: BP 160/85; PULSE 80; RESP 20; TEMP 98.8
--- NOTE | 2021-07-30 07:46 | P.HPOB ---
History of Present Illness H&P Date: 07/07/21 Chief Complaint: IUP at 37 and 3, gestational hypertension with proteinuria. This 36-year-old 001 at 37-3/7 weeks that presented to labor and delivery last evening with complaints of elevated blood pressures. Patient had been previously observed with noted elevated blood pressures and sent home with labetalol. She did have preeclampsia labs done with noted drop in platelets, and a slight elevation of her LFTs. She does note slight headache that has been coming and going, she did have this throughout the . Blood pressures have been stable on bedrest and labetalol. Patient has had routine care with myself which has been uncomplicated. Patient does have a known history of asthma and hypothyroidism. On bloodwork this patient is a blood type of AB+, rubella status, B surface antigen negative, HIV negative, RPR nonreactive, group beta strep culture was positive. Review of Systems Constitutional: Denies chills, Denies fatigue, Denies fever Ears, nose, mouth and throat: Reports headache Cardiovascular: Reports leg edema Respiratory: Denies dyspnea Gastrointestinal: Denies constipation, Denies diarrhea, Denies nausea, Denies vomiting Genitourinary: Reports Past Medical History Past Medical History: Asthma, Thyroid Disorder Additional Past Medical History / Comment(s): Hypothyroid History of Any Multi-Drug Resistant Organisms: None Reported Past Surgical History: Section Additional Past Surgical History / Comment(s): Knee surgery to repair torn miniscus, from 08/16/18 Past Anesthesia/Blood Transfusion Reactions: Previous Problems w/ Anesthesia Additional Past Anesthesia/Blood Transfusion Reaction / Comment(s): Family history of nausea/vomiting with anesthesia Past Psychological History: ADD/ADHD Smoking Status: Never smoker Past Alcohol Use History: None Reported Past Drug Use History: None Reported - Past Family History Mother Additional Family Medical History / Comment(s): osteoporosis Father Family Medical History: AFIB, AICD/Pacemaker, Myocardial Infarction ([place]) Additional Family Medical History / Comment(s): June 2019 Medications and Allergies Home Medications Medication Instructions Recorded Confirmed Type Levothyroxine Sodium [Synthroid] 75 mcg PO DAILY 07/03/18 07/05/21 History Famotidine [Pepcid] 20 mg PO BID #0 tab 07/31/19 07/05/21 Rx Ipratropium-Albuterol Nebulize 3 ml INHALATION QID #120 neb 08/03/19 Rx [Duoneb 0.5 mg-3 mg/3 ml Soln] Acetaminophen Tab [Tylenol] 650 mg PO Q4H 07/05/21 07/05/21 History Aspirin [Vazalore] 81 mg PO 07/05/21 History Fluticasone Nasal [place] [Flonase 07/05/21 History Nasal [place]] Loratadine [Claritin] 5 mg PO DAILY 07/05/21 07/05/21 History Pnv 11/Iron Fum/Folic Acid/Om3 1 each PO 07/05/21 History [Virt-Alton Dha Softgel] Labetalol [Trandate] 100 mg PO BID 07/06/21 07/06/21 History Allergies Allergy/AdvReac Type Severity Reaction Status Date / Time hydrocodone Allergy Vomiting Verified 07/06/21 23:22 lavender (Lavandula Allergy Rash/Hives Verified 07/05/21 16:09 angustifolia) shellfish derived [Shellfish] Allergy Diarrhea Verified 07/05/21 16:09 mustard AdvReac Anaphylaxis Verified 07/05/21 16:09 Exam Osteopathic Statement: *. No significant issues noted on an osteopathic structural exam other than those noted in the History and Physical/Consult. 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 heart tones are noted to be category 1 and she is not yue. Results Result Diagrams: 07/07/21 00:53 Abnormal Lab Results - Last 24 Hours (Table) 07/06/21 07/06/21 07/07/21 Range/Units 15:00 15:00 00:53 WBC 10.8 H (3.8-10.6) k/uL Plt Count 113 L (150-450) k/uL Neutrophils # 7.8 H (1.3-7.7) k/uL Ur 24 Hour Volume 2500 H 2500 H (800-1800) mls U Tot Protein 24h, Calc 325 H (42.0-225.0) mg/24hr Assessment and Plan (1) 37 or more weeks gestation of Current Visit: Yes Status: Acute Code(s): CWR8335 - SNOMED Code(s): 92528656 (2) Gestational HTN Current Visit: Yes Status: Acute Code(s): O13.9 - GESTATIONAL HTN W/O SIGNIFICANT PROTEINURIA, UNSP TRIMESTER SNOMED Code(s): 03337976 (3) AMA (advanced maternal age) primigravida 35+ Current Visit: No Status: Acute Code(s): O09.519 - SUPERVISION OF ELDERLY PRIMIGRAVIDA, UNSPECIFIED TRIMESTER SNOMED Code(s): 60741178 Plan: This 36-year-old at 37-3/7 weeks with diagnosed gestational hypertension with proteinuria. Patient has a prior history of a and desires repeat with tubal. Patient is counseled on current clinical findings of station hypertension on labetalol, gestational age, worsening condition. Patient wishes to proceed with repeat section with tubal ligation. All questions are answered regarding her clinical status, term delivery at 37 weeks of her . We'll proceed to operating suite, anesthesia has been notified
== END 2021-07-09 17:15 | disposition home or self-care (01) | DRG 785 ==
LOC: FBPOP 23:18 → 4FBP 07-07 00:03
PROVIDERS: ADMIT Obstetrics & Gynecology; ATTEND Obstetrics & Gynecology Obstetrics
PROC: 10D00Z1 Extraction of Products of Conception, Low, Open Approach (ICD-10-PCS; principal; 2021-07-07 11:10)
PROC: 0UL70CZ Occlusion of Bilateral Fallopian Tubes with Extraluminal Device, Open Approach (ICD-10-PCS; principal; 2021-07-07 11:10)
DX: O14.94 Unspecified pre-eclampsia, complicating childbirth (principal); O34.211 Maternal care for low transverse scar from previous cesarean delivery; N85.8 Other specified noninflammatory disorders of uterus; Z37.0 Single live birth; O99.284 Endocrine, nutritional and metabolic diseases complicating childbirth; O99.52 Diseases of the respiratory system complicating childbirth; E03.9 Hypothyroidism, unspecified; J45.909 Unspecified asthma, uncomplicated; Z30.2 Encounter for sterilization; Z3A.37 37 weeks gestation of pregnancy; O99.344 Other mental disorders complicating childbirth; F90.9 Attention-deficit hyperactivity disorder, unspecified type; O99.73 Diseases of the skin and subcutaneous tissue complicating the puerperium; L29.9 Pruritus, unspecified; T75.3XXA Motion sickness, initial encounter; Z79.82 Long term (current) use of aspirin; Z79.890 Hormone replacement therapy; Z79.899 Other long term (current) drug therapy; Z88.5 Allergy status to narcotic agent; Z91.013 Allergy to seafood; Z91.018 Allergy to other foods; Z91.048 Other nonmedicinal substance allergy status; Z87.39 Personal history of other diseases of the musculoskeletal system and connective tissue; Z98.890 Other specified postprocedural states; Z82.62 Family history of osteoporosis; Z82.49 Family history of ischemic heart disease and other diseases of the circulatory system
CPT/HCPCS: 59025; 81050; 82565; 82570; 83615; 84156; 84450; 84460; 84520; 84550; 85025; 85384; 85610; 85730; 86850; 86900; 86901; 88307; 99215

== ENCOUNTER 2022-01-11 19:25 | Emergency (ER) | payer OTHER ==
[2022-01-11 19:39] VITALS: BP 156/93; PULSE 107; RESP 22; TEMP 98.4
[2022-01-11] MEDS ORDERED: ACETAMINOPHEN TAB 500 MG TAB PO STA ×2 (20:10→20:26)
[2022-01-11] MEDS ORDERED: IBUPROFEN 400 MG TAB PO STA (20:10)
--- NOTE | 2022-01-11 20:10 | ED ---
Lower Extremity Injury HPI - General Chief Complaint: Extremity Injury, Lower Stated Complaint: Right Calf Injury Time Seen by Provider: 01/11/22 20:00 Source: patient, RN notes reviewed Mode of arrival: ambulatory Limitations: no limitations - History of Present Illness Initial Comments: This is a pleasant 36-year-old female who presents to emergency department after injuring her right calf and right Achilles tendon area when she was running from bees. States she felt a pop, patient then sat around a while and it stiffened up on her. Patient states that she is getting pain in the calf area as well as the Achilles tendon area when she attempts to walk or move. Patient denying any ankle or knee pain otherwise. No break in skin integrity. No other injuries. No headache, no fever or chills, no changes in vision or hearing, no sore throat or difficulty with speech, no neck pain, no chest pain or shortness of breath, n o abdominal pain, no nausea or vomiting, no changes in urination or bowel movements, no numbness or tingling, no skin rashes or lesions. Past medical, surgical, social, and family history reviewed. MD Complaint: leg injury - Related Data Home Medications Medication Instructions Recorded Confirmed Levothyroxine Sodium [Synthroid] 75 mcg PO DAILY 07/03/18 07/05/21 Acetaminophen Tab [Tylenol] 650 mg PO Q4H 07/05/21 07/05/21 Aspirin [Vazalore] 81 mg PO 07/05/21 Fluticasone Nasal [place] [Flonase 07/05/21 Nasal [place]] Loratadine [Claritin] 5 mg PO DAILY 07/05/21 07/05/21 Pnv 11/Iron Fum/Folic Acid/Om3 1 each PO 07/05/21 [Virt-[place] Dha Softgel] Labetalol [Trandate] 100 mg PO BID 07/06/21 07/06/21 Previous Rx's Medication Instructions Recorded Famotidine [Pepcid] 20 mg PO BID #0 tab 07/31/19 Ipratropium-Albuterol Nebulize 3 ml INHALATION QID #120 neb 08/03/19 [Duoneb 0.5 mg-3 mg/3 ml Soln] Allergies Allergy/AdvReac Type Severity Reaction Status Date / Time hydrocodone Allergy Vomiting Verified 01/11/22 19:39 lavender (Lavandula Allergy Rash/Hives Verified 01/11/22 19:39 angustifolia) shellfish derived [Shellfish] Allergy Diarrhea Verified 01/11/22 19:39 mustard AdvReac Anaphylaxis Verified 01/11/22 19:39 Review of Systems ROS Statement: Those systems with pertinent positive or pertinent negative responses have been documented in the HPI. ROS Other: All systems not noted in ROS Statement are negative. Past Medical History Past Medical History: Asthma, Hypertension, Thyroid Disorder Additional Past Medical History / Comment(s): Hypothyroid History of Any Multi-Drug Resistant Organisms: None Reported Past Surgical History: Section Additional Past Surgical History / Comment(s): Knee surgery to repair torn miniscus, from 08/16/18 Past Anesthesia/Blood Transfusion Reactions: Previous Problems w/ Anesthesia Additional Past Anesthesia/Blood Transfusion Reaction / Comment(s): Family history of nausea/vomiting with anesthesia Past Psychological History: ADD/ADHD Smoking Status: Never smoker Past Alcohol Use History: None Reported Past Drug Use History: None Reported - Past Family History Mother Additional Family Medical History / Comment(s): osteoporosis Father Family Medical History: AFIB, AICD/Pacemaker, Myocardial Infarction ([place]) Additional Family Medical History / Comment(s): June 2019 General Exam Limitations: no limitations General appearance: alert, in no apparent distress Eye exam: Present: normal appearance, EOMI Neck exam: Present: normal inspection, full ROM Respiratory exam: Present: normal lung sounds bilaterally. Absent: respiratory distress, wheezes, rales, rhonchi, stridor Cardiovascular Exam: Present: regular rate, normal rhythm, normal heart sounds. Absent: systolic murmur, diastolic murmur, rubs, gallop, clicks GI/Abdominal exam: Present: soft. Absent: tenderness Extremities exam: Present: normal inspection (Remainder the orthopedic examination is benign. Full range of motion all major joints. Full muscle strength on major muscle groups otherwise.), tenderness (Patient has tenderness to the belly of the gastrocnemius muscle on the right as well as the Achilles tendon area.), normal capillary refill, other (Smith's test does reveal some movement. However this appears to be quite weak. She has weakness with plantar flexion versus resistance. This also elicits pain.). Absent: full ROM (Patient also Limited to that right ankle secondary to pain), pedal edema, joint swelling Back exam: Present: normal inspection, full ROM Neurological exam: Present: alert, oriented X3, CN II-XII intact. Absent: motor sensory deficit Psychiatric exam: Present: normal affect, normal mood Skin exam: Present: warm, dry, intact, normal color. Absent: rash Course Vital Signs 01/11/22 19:34 Temperature 98.4 F Pulse Rate 107 H Respiratory 22 Rate Blood Pressure 156/93 O2 Sat by Pulse 98 Oximetry - Reevaluation(s) Reevaluation #1: 01/11/22 21:34 Medical record is reviewed Symptoms are improved here in the emergency department Patient is informed of results and questions answered Patient in no distress Procedures - Orthopedic Splinting/Casting Injury #1 Side: right Lower Extremity Injury Location: short leg (Right leg and ankle) Lower Extremity Immobilizer: Bland dressing Other Orthopedic Equipment: crutches Additional Comments: Neurovascular status intact Medical Decision Making - Medical Decision Making Cephalgia most consistent with a right calf strain. However she is tender over the Achilles tendon with a somewhat weak Smith's test. This does raise suspicion of partially disrupted Achilles tendon. Ankle x-rays ordered. Ultrasound ordered. Patient has no other injuries. Since imaging shows no evidence of acute abnormality. We'll treat with a Bland wrap and follow-up with orthopedics. All findings and treatment plan discussed with the patient. Advised anti- inflammatory medicine and acetaminophen. Patient was told to return to the ER for any signs or symptoms worsen. Told to return immediately if any other problems arise. All questions answered. Treatment plan discussed. Patient in agreement Every effort has been made to ensure accuracy of this dictation. However, due to the limitations of electronic medical records and dictation devices, errors in charting still occur. Green House Manager Dr. Bland - Radiology Data Radiology results: report reviewed, image reviewed Disposition Clinical Impression: Strain of right calf muscle Narrative: Achilles tendon injury Disposition: HOME SELF-CARE Condition: Good Instructions (If sedation given, give patient instructions): Muscle Strain (ED), Achilles Tendinitis (ED) Additional Instructions: Use the crutches as directed. Follow-up with orthopedics --call at 8 AM tomorrow morning for a follow-up appointment. Follow-up with your regular physician as directed. Return to the ER immediately if any symptoms worsen, new symptoms arise, or any other problems develop. Is patient prescribed a controlled substance at d/c from ED?: No Referrals: Braaksma,Buster M, MD [Medical Doctor] - 01/14/22 Time of Disposition: 21:34
--- NOTE | 2022-01-11 20:55 | XR ---
EXAMINATION TYPE: XR tibia fibula RT DATE OF EXAM: 01/11/2022 COMPARISON: NONE HISTORY: Pain TECHNIQUE: 2 views FINDINGS: There is no evidence of fracture nor dislocation. Knee joint and ankle joint appear intact. No pathologic calcification. IMPRESSION: Negative right tibia and fibula exam.
--- NOTE | 2022-01-11 21:21 | US ---
EXAMINATION TYPE: US extremity nonvasculr ltd RT DATE OF EXAM: 01/11/2022 COMPARISON: NONE CLINICAL HISTORY: Right Achilles tendon pain/injury. Patient states she was running and when she fell she heard something pop. Injury was about 5 hours ago. No fluid collection visualized. Pain travels up right calf, but no abnormality visualized there. IMPRESSION: No evidence of organizing fluid collection or mass.
== END 2022-01-11 22:00 | disposition home or self-care (01) ==
LOC: EC 19:25
DX: S86.011A Strain of right Achilles tendon, initial encounter (principal); J45.909 Unspecified asthma, uncomplicated; I10 Essential (primary) hypertension; E03.9 Hypothyroidism, unspecified; Z79.890 Hormone replacement therapy; Z79.52 Long term (current) use of systemic steroids; Z88.5 Allergy status to narcotic agent; Z91.048 Other nonmedicinal substance allergy status; Z91.013 Allergy to seafood; Z91.018 Allergy to other foods; X50.9XXA Other and unspecified overexertion or strenuous movements or postures, initial encounter; Y93.02 Activity, running
CPT/HCPCS: 29515; 99283

== ENCOUNTER → 2022-06-29 | Outpatient (CLI) | payer OTHER ==
[2022-06-29 20:46] LABS: Total Protein,CSF 61 mg/dL (12-60)
[2022-06-30 01:40] LABS: Appearance,CSF Clear; CSF Tube Number 4
[2022-06-30 01:41] LABS: Nucleated Cells, CSF 0 u/L (0-5); Red Blood Cell,CSF 0 u/L (0-10)
== END | disposition home or self-care (01) ==
LOC: LABWHC1 10:09
PROVIDERS: ATTEND Nurse Practitioner Acute Care
DX: R90.82 White matter disease, unspecified (principal)
CPT/HCPCS: 36415; 82040; 82042; 82784; 83873; 83916; 84157; 89050

== ENCOUNTER 2023-04-29 13:03 | Emergency (ER) | payer OTHER ==
--- NOTE | 2023-04-29 13:16 | ED ---
Lower Extremity Injury HPI - General Stated Complaint: R Foot Injury Time Seen by Provider: 04/29/23 13:15 Source: patient, family, RN notes reviewed - History of Present Illness Initial Comments: Patient is a 38-year-old female presented ER with a chief complaint of right foot injury. Patient states she rolled her ankle inverted it. Patient states she is having numbness to the fifth metatarsal. Patient denies any other inju donald. She is reporting that it is extremely painful for her to walk and she is unable to bear weight. Patient denies any fevers or chills. - Related Data Home Medications Medication Instructions Recorded Confirmed Levothyroxine Sodium [Synthroid] 75 mcg PO DAILY 07/03/18 07/05/21 Acetaminophen Tab [Tylenol] 650 mg PO Q4H 07/05/21 07/05/21 Aspirin [[place]azalore] 81 mg PO 07/05/21 Fluticasone Nasal [place] [Flonase 07/05/21 Nasal [place]] Loratadine [Claritin] 5 mg PO DAILY 07/05/21 07/05/21 Pnv 11/Iron Fum/Folic Acid/Om3 1 each PO 07/05/21 [Virt-[place] Dha Softgel] Labetalol [Trandate] 100 mg PO BID 07/06/21 07/06/21 Previous Rx's Medication Instructions Recorded Famotidine [Pepcid] 20 mg PO BID #0 tab 07/31/19 Ipratropium-Albuterol Nebulize 3 ml INHALATION QID #120 neb 08/03/19 [Duoneb 0.5 mg-3 mg/3 ml Soln] Allergies Allergy/AdvReac Type Severity Reaction Status Date / Time diroximel fumarate Allergy Rash/Hives Verified 04/29/23 13:34 [From [facility]] hydrocodone Allergy Vomiting Verified 04/29/23 13:25 lavender (Lavandula Allergy Rash/Hives Verified 04/29/23 13:25 angustifolia) shellfish derived [Shellfish] Allergy Diarrhea Verified 04/29/23 13:25 mustard AdvReac Anaphylaxis Verified 04/29/23 13:25 Review of Systems ROS Statement: Those systems with pertinent positive or pertinent negative responses have been documented in the HPI. ROS Other: All systems not noted in ROS Statement are negative. Past Medical History Past Medical History: Asthma, Hypertension, Thyroid Disorder Additional Past Medical History / Comment(s): Hypothyroid History of Any Multi-Drug Resistant Organisms: None Reported Past Surgical History: Section Additional Past Surgical History / Comment(s): Knee surgery to repair torn miniscus, from 08/16/18 Past Anesthesia/Blood Transfusion Reactions: Previous Problems w/ Anesthesia Additional Past Anesthesia/Blood Transfusion Reaction / Comment(s): Family history of nausea/vomiting with anesthesia Past Psychological History: ADD/ADHD Smoking Status: Never smoker Past Alcohol Use History: None Reported Past Drug Use History: None Reported - Past Family History Mother Additional Family Medical History / Comment(s): osteoporosis Father Family Medical History: AFIB, AICD/Pacemaker, Myocardial Infarction ([place]) Additional Family Medical History / Comment(s): June 2019 General Exam General appearance: alert, in no apparent distress Respiratory exam: Present: normal lung sounds bilaterally. Absent: respiratory distress, wheezes, rales, rhonchi, stridor Cardiovascular Exam: Present: regular rate, normal rhythm, normal heart sounds. Absent: systolic murmur, diastolic murmur, rubs, gallop, clicks Extremities exam: Present: other (Edema noted to the fifth metatarsal base. 2+ right dorsalis pedis pulse. Sensation is intact and full range of motion of ankle.) Course Vital Signs 04/29/23 13:22 Temperature 98.2 F Pulse Rate 82 Respiratory 20 Rate Blood Pressure 146/65 O2 Sat by Pulse 97 Oximetry Procedures - Orthopedic Splinting/Casting Injury #1 Side: right Lower Extremity Injury Location: foot Lower Extremity Immobilizer: posterior splint Medical Decision Making - Medical Decision Making Was pt. sent in by a medical professional or institution (, PA, BUCK PRESSER, urgent care, hospital, or group home...) When possible be specific @ -No Did you speak to anyone other than the patient for history (EMS, parent, family, police, friend...)? What history was obtained from this source @ -Family Did you review nursing and triage notes (agree or disagree)? Why? @ -I reviewed and agree with nursing and triage notes Were old charts reviewed (outside hosp., previous admission, EMS record, old EKG, old radiological studies, urgent care reports/EKG's, group home records)? Report findings @ -No old charts were reviewed Differential Diagnosis (chest pain, altered mental status, abdominal pain women, abdominal pain men, vaginal bleeding, weakness, fever, dyspnea, syncope, headache, dizziness, GI bleed, back pain, seizure, CVA, palpatations, mental health, musculoskeletal)? @ -Differential Musculoskeletal: Muscular strain, contusion, ligament sprain, fracture, arthritis, septic arthritis, bursitis, cellulitis, muscle spasm, nerve compression, DVT, arterial occlusion, herpes zoster, electrolyte abnormality, tumor.... This is not meant to be in all inclusive list EKG interpreted by me (3pts min.). @ -None X-rays interpreted by me (1pt min.). @ -X-rays of right foot are significant for a fracture of the base of fifth metatarsal with mild displacement. CT interpreted by me (1pt min.). @ -None done U/S interpreted by me (1pt. min.). @ -None done What testing was considered but not performed or refused? (CT, X-rays, U/S, labs)? Why? @ -None What meds were considered but not given or refused? Why? @ -None Did you discuss the management of the patient with other professionals (professionals i.e. , PA, BUCK PRESSER, lab, RT, psych nurse, school social worker, fishing gear mechanic, teacher, ambulance officer, case packer and sealer)? Give summary @ -No Was smoking cessation discussed for >3mins.? @ -No Was critical care preformed (if so, how long)? @ -No Were there social determinants of health that impacted care today? How? (Homelessness, low income, unemployed, alcoholism, drug addiction, transportation, low edu. Level, literacy, decrease access to med. care, senior living, rehab)? @ -No Was there de-escalation of care discussed even if they declined (Discuss DNR or withdrawal of care, Hospice)? DNR status @ -No What co-morbidities impacted this encounter? (DM, HTN, Smoking, COPD, CAD, Cancer, CVA, ARF, Chemo, Hep., AIDS, mental health diagnosis, sleep apnea, morbid obesity)? @ -None Was patient admitted / discharged? Hospital course, mention meds given and route, prescriptions, significant lab abnormalities, going to OR and other pertinent info. @ -Discharged. Patient is a 38 year old female presenting to the ER with chief complaint of right foot injury. On examination there was edema and tenderness noted to base of fifth metatarsal. Patient received IM Toradol for pain control in the ER. X-ray of the right foot shows a fracture of the base of fifth metatarsal with mild displacement. Patient was placed in a posterior splint. I discussed with the patient to remain nonweightbearing in take [id number] Tylenol or Motrin for pain control. Patient be discharged in stable condition with follow- up to orthopedics. Patient expressed understanding and agreement with care plan. Undiagnosed new problem with uncertain prognosis? @ -No Drug Therapy requiring intensive monitoring for toxicity (Heparin, Nitro, Insulin, Cardizem)? @ -No Were any procedures done? @ Yes Diagnosis/symptom? @ -Bland fracture Acute, or Chronic, or Acute on Chronic? @ -Acute Uncomplicated (without systemic symptoms) or Complicated (systemic symptoms)? @ -Uncomplicated Side effects of treatment? @ -No Exacerbation, Progression, or Severe Exacerbation? @ -No Poses a threat to life or bodily function? How? (Chest pain, [place], [place], pneumonia, PE, COPD, DKA, ARF, appy, cholecystitis, CVA, Diverticulitis, Homicidal, Suicidal, threat to staff... and all critical care pts) @ -No - Radiology Data Radiology results: report reviewed, image reviewed Disposition Clinical Impression: Bland fracture Disposition: HOME SELF-CARE Condition: Stable Additional Instructions: Please return to the Emergency Department if symptoms worsen or any other concerns. Is patient prescribed a controlled substance at d/c from ED?: No Referrals: Cuba Campbell MD [Primary Care Provider] - 1-2 days Nicolas Quezada DO [Doctor of Osteopathic Medicine] - 1-2 days Juice Leija DO [Doctor of Osteopathic Medicine] - 1-2 days Time of Disposition: 14:20
[2023-04-29 13:32] VITALS: BP 146/65; PULSE 82; RESP 20; TEMP 98.2
[2023-04-29] MEDS ORDERED: KETOROLAC 15 MG/ML 1 ML VIAL IM STA (13:34)
--- NOTE | 2023-04-29 13:58 | XR ---
EXAMINATION TYPE: XR foot complete RT DATE OF EXAM: 04/29/2023 1:52 PM CLINICAL INDICATION:Female, 38 years old with history of injury; [facility] COMPARISON: None TECHNIQUE: XR foot complete RT examined in the AP, oblique, and lateral projections. FINDINGS/IMPRESSION: * Acute fracture of the base of the fifth metatarsal with mild displacement. Mild soft tissue swelli ng. Accessory ossicle next to the cuboid.
== END 2023-04-29 16:50 | disposition home or self-care (01) ==
LOC: EC 13:03
DX: S92.351A Displaced fracture of fifth metatarsal bone, right foot, initial encounter for closed fracture (principal); E03.9 Hypothyroidism, unspecified; I10 Essential (primary) hypertension; J45.909 Unspecified asthma, uncomplicated; Z86.59 Personal history of other mental and behavioral disorders; Z79.890 Hormone replacement therapy; Z79.82 Long term (current) use of aspirin; Z91.013 Allergy to seafood; Z88.5 Allergy status to narcotic agent; Z88.8 Allergy status to other drugs, medicaments and biological substances; X50.1XXA Overexertion from prolonged static or awkward postures, initial encounter
CPT/HCPCS: 96372; 99283; 73630; 29515; J1885

== ENCOUNTER → 2024-11-19 | Outpatient (CLI) | payer OTHER ==
[2024-11-19 19:03] LABS: Basophils # (A) 0.05 X 10*3/uL (0.00-0.10); Basophils % (A) 0.5 %; Eosinophils # (A) 0.33 X 10*3/uL (0.04-0.35); Eosinophils % (A) 3.6 %; Lymphocytes # (A) 2.38 X 10*3/uL (0.90-5.00); Lymphocytes % (A) 25.8 %; MCH 27.5 pg (27.0-32.0); MCHC 32.6 g/dL (32.0-37.0); MCV 84.5 FL (80.0-97.0); Mean Platelet Volume 12.4 FL (9.5-12.2); Monocytes # (A) 0.63 X 10*3/uL (0.20-1.00); Monocytes % (A) 6.8 %; NRBC Per 100 WBC 0 X 10*3/uL (0.00-0.01); Neutrophils # (A) 5.83 X 10*3/uL (1.80-7.70); Neutrophils % (A) 63.1 %; Platelet Count 274 X 10*3/uL (140-440); RBC 5.09 X 10*6/uL (4.10-5.20); RDW 13.5 % (11.5-14.5); WBC 9.24 X 10*3/uL (4.50-10.00)
[2024-11-19 20:03] LABS: Thyroid Peroxidase Antibodies 12.1 U/mL (0.0-33.0)
[2024-11-19 20:13] LABS: ALT 37 U/L (8-44); AST 33 U/L (13-35); Albumin 4.4 g/dL (3.8-4.9); Albumin/Globulin Ratio 1.57 Ratio (1.60-3.17); Alkaline Phosphatase 60 U/L (41-126); BUN/Creat Ratio 14.38 Ratio (12.00-20.00); Blood Urea Nitrogen 11.5 mg/dL (9.0-27.0); Calcium 9.6 mg/dL (8.7-10.3); Carbon Dioxide 25.1 mmol/L (21.6-31.8); Chloride 104 mmol/L (96-109); Globulin 2.8 g/dL (1.6-3.3); Glucose 100 mg/dL (70-110); Magnesium 2.1 mg/dL (1.5-2.4); Potassium 4.2 mmol/L (3.5-5.5); Sodium 142 mmol/L (135-145); Total Bilirubin 0.2 mg/dL (0.3-1.2); Total Protein 7.2 g/dL (6.2-8.2)
== END | disposition home or self-care (01) ==
LOC: LABWHC1 16:07
PROVIDERS: ATTEND Nurse Practitioner
DX: M25.50 Pain in unspecified joint (principal); E07.9 Disorder of thyroid, unspecified; R20.0 Anesthesia of skin; R20.2 Paresthesia of skin; R74.8 Abnormal levels of other serum enzymes
CPT/HCPCS: 36415; 80053; 82306; 82607; 82746; 83735; 84439; 84443; 84480; 84481; 84597; 85025; 86038; 86376